=== PATIENT | male | born 1945 | race Caucasian/White ===

== ENCOUNTER 2018-01-11 15:54 | Inpatient (IN) | payer MEDICARE ==
[2018-01-11] MEDS ORDERED: ASPIRIN 81 MG PO STA (16:03)
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
[2018-01-11 16:19] LABS: Basophils % (A) 0 %; Eosinophils # (A) 0.1 k/uL (0-0.7); Eosinophils % (A) 1 %; HCT 33.7 % (39.0-53.0); HGB 11.3 gm/dL (13.0-17.5); Lymphocytes # (A) 1.1 k/uL (1.0-4.8); Lymphocytes % (A) 6 %; MCH 30.9 pg (25.0-35.0); MCHC 33.5 g/dL (31.0-37.0); MCV 92.1 fL (80.0-100.0); Mean Platelet Volume 8.1; Monocytes # (A) 0.8 k/uL (0-1.0); Monocytes % (A) 4 %; Neutrophils # (A) 16.2 k/uL (1.3-7.7); Neutrophils % (A) 88 %; Platelet Count 201 k/uL (150-450); RBC 3.65 m/uL (4.30-5.90); RDW 13.9 % (11.5-15.5); WBC 18.3 k/uL (3.8-10.6)
[2018-01-11 16:33] LABS: Albumin 4.2 g/dL (3.5-5.0); Calcium 9.6 mg/dL (8.4-10.2); Magnesium 1.8 mg/dL (1.6-2.3); Potassium 4.9 mmol/L (3.5-5.1); Total Bilirubin 0.9 mg/dL (0.2-1.3); Total Protein 6.9 g/dL (6.3-8.2)
[2018-01-11 16:34] LABS: Partial Thromboplastin Time 24.2 sec (22.0-30.0); Prothrombin Time 10.1 sec (9.0-12.0)
[2018-01-11 16:42] LABS: Creatine Kinase 77 U/L (55-170)
[2018-01-11 16:52] LABS: D-Dimer 1.94 mg/L FEU (<0.60)
--- NOTE | 2018-01-11 16:52 | XR ---
EXAMINATION TYPE: XR chest 2V DATE OF EXAM: 01/11/2018 COMPARISON: NONE HISTORY: Chest discomfort and pain. TECHNIQUE: Frontal and lateral views of the chest are obtained. FINDINGS: There is left basilar opacity silhouetting left heart border and hemidiaphragm. There is less prominent right basilar opacity silhouetting portion of right minor fissure. The cardiac silhoue tte size is felt enlarged. Old posterior left rib fractures are noted. IMPRESSION: Lingular and left lower lobe infiltrates and less prominent right middle lobe infiltrate .
[2018-01-11 16:54] LABS: Creatine Kinase MB 0.9 ng/mL (0.0-2.4); Troponin I <0.012 ng/mL (0.000-0.034)
[2018-01-11] MEDS ORDERED: cefTRIAXone IN SWFI 1,000 MG/10 ML SYRINGE IVP STA (17:49)
[2018-01-11] MEDS ORDERED: PNEUMONIA PROTOCOL UTILIZED 1 EACH MISC PO PRN (18:42)
[2018-01-11] MEDS ORDERED: AZITHROMYCIN 500 MG in SODIUM CHLORIDE 0.9% 250 ML IVPB STA (18:42)
[2018-01-11] MEDS ORDERED: ALPRAZolam 0.25 MG TAB PO PRN (18:44)
[2018-01-11] MEDS ORDERED: FUROSEMIDE 20 MG TAB PO PRN (18:44)
--- NOTE | 2018-01-11 19:42 | P.HPIM ---
History of Present Illness Patient is a very pleasant gentleman 72-year-old came in with complains of not feeling well has been going on since yesterday feels tired fatigued body aches along with shortness of breath denied any orthopnea PND denied any significant cough patient is found to have infiltrates significant on the left lower lung devi along with the mild infiltrate in the right lung devi patient has BNP of around thousand patient is being admitted for pneumonia patient has renal dysfunction unsure whether patient kidney function abnormality. Patient is on multiple antidepressant medications including minoxidil, clonidine, metoprolol, hydrochlorothiazide, losartan, amlodipine. Patient blood pressure is low here. Patient was started on IV fluids antibiotics Rocephin and azithromycin and is being admitted. Was complaining of subjective chills doesn't have any fever here, was comparing of questionable pleuritic pain Review of Systems REVIEW OF SYSTEMS: CONSTITUTIONAL: No fever, no malaise, no fatigue. HEENT: No recent visual problems or hearing problems. Denied any sore throat. CARDIOVASCULAR: No chest pain, orthopnea, PND, no palpitations, no syncope. PULMONARY: As mentioned in HPI GASTROINTESTINAL: No diarrhea, no nausea, no vomiting, no abdominal pain. Normoactive bowel sounds. NEUROLOGICAL: No headaches, no weakness, no numbness. HEMATOLOGICAL: Denies any bleeding or petechiae. GENITOURINARY: Denies any burning micturition, frequency, or urgency. MUSCULOSKELETAL/RHEUMATOLOGICAL: Denies any joint pain, swelling, or any muscle pain. ENDOCRINE: Denies any polyuria or polydipsia. The rest of the 14-point review of systems is negative. Past Medical History Past Medical History: Hypertension History of Any Multi-Drug Resistant Organisms: None Reported Past Surgical History: Appendectomy Past Psychological History: No Psychological Hx Reported Smoking Status: Never smoker Past Alcohol Use History: Occasional Past Drug Use History: None Reported Medications and Allergies Home Medications Medication Instructions Recorded Confirmed Type ALPRAZolam [Xanax] 0.25 mg PO DAILY PRN 01/11/18 01/11/18 History Allopurinol [Zyloprim] 300 mg PO DAILY 01/11/18 01/11/18 History Fluticasone Nasal [place] [Flonase 2 spr EA NOSTRIL DAILY PRN 01/11/18 01/11/18 History Nasal [place]] Furosemide [Lasix] 20 mg PO DAILY PRN 01/11/18 01/11/18 History Loratadine [Claritin] 10 mg PO DAILY 01/11/18 01/11/18 History Losartan/Hydrochlorothiazide 1 tab PO DAILY 01/11/18 01/11/18 History [Losartan-Hctz 100-25 mg Tab] Metoprolol Succinate (ER) [Toprol 100 mg PO DAILY 01/11/18 01/11/18 History Xl] Minoxidil 5 mg PO TID 01/11/18 01/11/18 History Potassium Chloride [Klor-Con 20] 20 meq PO DAILY 01/11/18 01/11/18 History Tamsulosin HCl [Flomax] 0.4 mg PO DAILY 01/11/18 01/11/18 History amLODIPine [Norvasc] 10 mg PO DAILY 01/11/18 01/11/18 History cloNIDine HCL 0.3 mg PO TID 01/11/18 01/11/18 History Allergies Allergy/AdvReac Type Severity Reaction Status Date / Time clams Allergy Unknown Verified 01/11/18 16:52 Physical Exam Vitals: Vital Signs Temp Pulse Resp BP Pulse Ox 01/11/18 18:49 78 18 103/58 95 01/11/18 17:48 76 18 100/59 95 01/11/18 15:58 98.5 F 86 18 123/66 96 Intake and Output 01/11/18 01/11/18 01/11/18 06:59 14:59 22:59 Other: Weight 99.79 kg PHYSICAL EXAMINATION: GENERAL: The patient is alert and oriented x3, not in any acute distress. Well developed, well nourished. HEENT: Pupils are round and equally reacting to light. EOMI. No scleral icterus. No conjunctival pallor. Normocephalic, atraumatic. No pharyngeal erythema. No thyromegaly. CARDIOVASCULAR: S1 and S2 present. No murmurs, rubs, or gallops. PULMONARY: She does have crackles in the left lower lung bases. ABDOMEN: Soft, nontender, nondistended, normoactive bowel sounds. No palpable organomegaly. MUSCULOSKELETAL: No joint swelling or deformity. EXTREMITIES: No cyanosis, clubbing, or pedal edema. NEUROLOGICAL: Gross neurological examination did not reveal any focal deficits. SKIN: No rashes. Results CBC & Chem 7: 01/11/18 16:03 01/11/18 16:03 Labs: Abnormal Lab Results - Last 24 Hours (Table) 01/11/18 01/11/18 01/11/18 Range/Units 16:03 16:03 16:03 WBC 18.3 H (3.8-10.6) k/uL RBC 3.65 L (4.30-5.90) m/uL Hgb 11.3 L (13.0-17.5) gm/dL Hct 33.7 L (39.0-53.0) % Neutrophils # 16.2 H (1.3-7.7) k/uL D-Dimer 1.94 H (<0.60) mg/L FEU Carbon Dioxide 21 L (22-30) mmol/L BUN 37 H (9-20) mg/dL Creatinine 2.80 H (0.66-1.25) mg/dL Glucose 107 H (74-99) mg/dL ALT 19 L (21-72) U/L Assessment and Plan Plan: -Left lower lobe pneumonia and sepsis secondary to left lower lobe pneumonia: Patient is on Rocephin and azithromycin and IV fluids which will be continued -Renal failure: Unsure whether patient has acute renal failure chronic renal failure will continue the IV fluids recheck kidney function tomorrow. Patient will need further workup with the UA urine random sodium urine random creatinine renal ultrasound. Can be related to hypotension from excessive antidepressant medications are sepsis. hypertension patient is on multiple antiplatelet medication because of hypotension and sepsis all that if his medications will be cut discontinued except for metoprolol to avoid any reflux tachycardia.
[2018-01-11] MEDS: SODIUM CHLORIDE 0.9% 1,000 ML IV SCH (20:05)
[2018-01-11] MEDS: IPRATROPIUM-ALBUTEROL 3 ML NEB INHALATION SCH (21:32)
[2018-01-11] MEDS ORDERED: MINOXIDIL 2.5 MG TAB PO SCH (22:00)
[2018-01-11] MEDS: cloNIDine HCL 0.1 MG TAB PO SCH (22:31)
[2018-01-12] MEDS: IPRATROPIUM-ALBUTEROL 3 ML NEB INHALATION SCH ×6 (00:56→20:56)
[2018-01-12 05:51] LABS: Appearance,Urine Cloudy (Clear); Bilirubin,Urine Negative (Negative); Blood,Urine Negative (Negative); Color,Urine Yellow; Glucose,Urine (UA) Negative (Negative); Hyaline Casts,Urine 453 /lpf (0-2); Ketones,Urine Negative (Negative); Leukocyte Esterase,Urine Negative (Negative); Nitrite,Urine Negative (Negative); Protein,Urine 1+ (Negative); RBC,Urine <1 /hpf (0-5); Specific Gravity,Urine 1.021 (1.001-1.035); Squamous Epithelial Cell,Urine <1 /hpf (0-4); WBC,Urine 2 /hpf (0-5)
[2018-01-12] MEDS: SODIUM CHLORIDE 0.9% 1,000 ML IV SCH ×3 (06:02→21:33)
[2018-01-12] MEDS: AZITHROMYCIN 500 MG TAB PO SCH (08:57)
[2018-01-12] MEDS: cloNIDine HCL 0.1 MG TAB PO SCH ×3 (08:58→21:22)
[2018-01-12] MEDS: METOPROLOL SUCCINATE (ER) 100 MG TAB.ER.24H PO SCH (08:58)
[2018-01-12] MEDS: LORATADINE 10 MG TAB PO SCH (08:58)
[2018-01-12] MEDS: cefTRIAXone IN SWFI 1,000 MG/10 ML SYRINGE IVP SCH (08:58)
[2018-01-12] MEDS: TAMSULOSIN 0.4 MG CAP.ER.24H PO SCH (08:59)
[2018-01-12] MEDS ORDERED: NON-FORMULARY DRUG (Losartan/Hydrochlorothiazide [Losartan-Hctz 100-25 Mg Tab] 1 TAB) PO SCH (09:00)
[2018-01-12] MEDS ORDERED: amLODIPine 10 MG TAB PO SCH (09:00)
[2018-01-12] MEDS ORDERED: POTASSIUM CHLORIDE ER 20 MEQ TAB.ER PO SCH (09:00)
[2018-01-12 09:15] LABS: HCT 33.7 % (39.0-53.0); HGB 11.1 gm/dL (13.0-17.5); MCH 30.7 pg (25.0-35.0); MCHC 33.1 g/dL (31.0-37.0); MCV 92.7 fL (80.0-100.0); Mean Platelet Volume 8.3; Platelet Count 198 k/uL (150-450); RBC 3.63 m/uL (4.30-5.90); WBC 15.9 k/uL (3.8-10.6)
[2018-01-12 09:32] LABS: Calcium 9.1 mg/dL (8.4-10.2); Potassium 4.9 mmol/L (3.5-5.1)
--- NOTE | 2018-01-12 10:06 | US ---
EXAMINATION TYPE: US kidneys/renal and bladder; renal stones per patient; pneumonia; HTN DATE OF EXAM: 01/12/2018 COMPARISON: NONE CLINICAL HISTORY: renal failure. EXAM MEASUREMENTS: Right Kidney: 12.5 x 6.0 x 6.6 cm Left Kidney: 11.4 x 6.2 x 7.0 cm Post Void Residual Volume: not assessed on inpatient Right Kidney: multiple cortical cysts with largest as simple cyst lateral inferiorly = 4.5 x 3.7 x 3. 9cm Left Kidney: multiple cortical cysts with largest seen inferiorly as simple cyst = 2.5 x 2.8 x 3.0cm . Bladder: wnl Bilateral Jets seen: only left ureteral jet was seen after 3 minute observation Incidental note: prominent and patent left iliac vein compared to right iliac vein at level of inferi or bladder. Cortical cysts show posterior enhancement, anechoic appearance, imperceptible wall compatible with si mple cysts. Cortical medullary differentiation is maintained within the kidneys, no evident hydroneph rosis or pathologic calcification. IMPRESSION: Simple cysts within the kidneys. Additional findings above.
--- NOTE | 2018-01-12 10:09 | XR ---
EXAMINATION TYPE: XR chest 2V DATE OF EXAM: 01/12/2018 COMPARISON: Prior chest x-ray 01/11/2018 HISTORY: Pneumonia TECHNIQUE: Frontal and lateral views of the chest are obtained. FINDINGS: Findings are similar to prior exam. Multiple old left-sided rib fractures are again noted, pleural parenchymal changes at the lung bases are stable. Heart remains enlarged. No evident pneumot horax. Arthropathy noted in the shoulders. IMPRESSION: Difficult to exclude basilar pneumonia, comparison with old chest x-rays may be of benef it to assess for stability or interval findings at the lung bases, pneumonia, pleural effusion not ex cluded.
--- NOTE | 2018-01-12 10:40 | P.PN ---
Subjective Patient was admitted for right lower lobe pneumonia patient is feeling better today ultrasound kidney showed some simple sepsis. Patient had chronic kidney disease. Patient does have acute renal failure as well which is prerenal azotemia urinary sodium is only 8 and continue with IV fluids today. His blood pressure is better now may require more antihypertensives during the course of hospitalization for now will only continue clonidine and metoprolol. Constitutional: Denied any fatigue denied any fever. Cardio vascular: denied any chest pain, palpitations Gastrointestinal denied any nausea vomiting Pulmonary: Shortness of breath improved Neurologic denied any new focal deficits Objective - Vital Signs Vital signs: Vital Signs Temp 98.2 F 01/12/18 07:05 Pulse 80 01/12/18 07:34 Resp 16 01/12/18 07:05 BP 140/75 01/12/18 07:05 Pulse Ox 98 01/12/18 07:05 Intake & Output 01/11/18 01/12/18 01/12/18 18:59 06:59 18:59 Output Total 400 Balance -400 Weight 99.79 kg 107.048 kg Output: Urine 400 - Exam PHYSICAL EXAMINATION: GENERAL: The patient is alert and oriented x3, not in any acute distress. Well developed, well nourished. HEENT: Pupils are round and equally reacting to light. EOMI. No scleral icterus. No conjunctival pallor. Normocephalic, atraumatic. No pharyngeal erythema. No thyromegaly. CARDIOVASCULAR: S1 and S2 present. No murmurs, rubs, or gallops. PULMONARY: Good air entry into bilateral lung devi no wheezing minimal crackles in the left lower lung bases ABDOMEN: Soft, nontender, nondistended, normoactive bowel sounds. No palpable organomegaly. MUSCULOSKELETAL: No joint swelling or deformity. EXTREMITIES: No cyanosis, clubbing, or pedal edema. NEUROLOGICAL: Gross neurological examination did not reveal any focal deficits. SKIN: No rashes. - Labs CBC & Chem 7: 01/12/18 08:57 01/12/18 08:57 Labs: Abnormal Lab Results - Last 24 Hours (Table) 01/11/18 01/11/18 01/11/18 Range/Units 16:03 16:03 16:03 WBC 18.3 H (3.8-10.6) k/uL RBC 3.65 L (4.30-5.90) m/uL Hgb 11.3 L (13.0-17.5) gm/dL Hct 33.7 L (39.0-53.0) % Neutrophils # 16.2 H (1.3-7.7) k/uL D-Dimer 1.94 H (<0.60) mg/L FEU Carbon Dioxide 21 L (22-30) mmol/L BUN 37 H (9-20) mg/dL Creatinine 2.80 H (0.66-1.25) mg/dL Glucose 107 H (74-99) mg/dL ALT 19 L (21-72) U/L Urine Protein (Negative) Hyaline Casts (0-2) /lpf Ur Random Sodium (30-90) mmol/L 01/12/18 01/12/18 01/12/18 Range/Units 00:00 00:00 08:57 WBC 15.9 H (3.8-10.6) k/uL RBC 3.63 L (4.30-5.90) m/uL Hgb 11.1 L (13.0-17.5) gm/dL Hct 33.7 L (39.0-53.0) % Neutrophils # (1.3-7.7) k/uL D-Dimer (<0.60) mg/L FEU Carbon Dioxide (22-30) mmol/L BUN (9-20) mg/dL Creatinine (0.66-1.25) mg/dL Glucose (74-99) mg/dL ALT (21-72) U/L Urine Protein 1+ H (Negative) Hyaline Casts 453 H (0-2) /lpf Ur Random Sodium 8 L (30-90) mmol/L 01/12/18 Range/Units 08:57 WBC (3.8-10.6) k/uL RBC (4.30-5.90) m/uL Hgb (13.0-17.5) gm/dL Hct (39.0-53.0) % Neutrophils # (1.3-7.7) k/uL D-Dimer (<0.60) mg/L FEU Carbon Dioxide 17 L (22-30) mmol/L BUN 40 H (9-20) mg/dL Creatinine 2.58 H (0.66-1.25) mg/dL Glucose 127 H (74-99) mg/dL ALT (21-72) U/L Urine Protein (Negative) Hyaline Casts (0-2) /lpf Ur Random Sodium (30-90) mmol/L Assessment and Plan Plan: -Left lower lobe pneumonia and sepsis secondary to left lower lobe pneumonia: Patient is on Rocephin and azithromycin and IV fluids which will be continued -Renal failure: Patient may have chronic kidney disease unable to stage at this time secondary to hypertensive nephrosclerosis and the patient appears to have some acute renal failure may be because of sepsis are intravascular depletion, continue with IV fluids hypertension patient is on multiple antiplatelet medication because of hypotension and sepsis all that if his medications will be cut discontinued except for metoprolol to avoid any reflux tachycardia.
[2018-01-12] MEDS: ALLOPURINOL 300 MG TAB PO SCH (11:25)
--- NOTE | 2018-01-12 20:18 | CONS ---
CONSULTATION REASON FOR CONSULT: Renal failure. HISTORY OF PRESENT ILLNESS: The patient is a 72-year-old male who was admitted to the hospital with complaints of increased fatigue, weakness, shortness of breath. The patient did have some cough. He states his blood pressure has not been well-controlled as outpatient. He is complaining of swelling in his lower extremities and he believes it is from Norvasc and he is maintained on diuretics as well. Currently patient is on Rocephin and azithromycin. He denies any previous history of kidney disease. Patient is maintained on angiotensin receptor blockers at home prior to admission. He denies use of nonsteroidal anti-inflammatory agents. Serum creatinine this admission was 2.8 initially, it is now down to 2.58. The patient is maintained on IV fluids. He has been voiding well and has had good urine output. Blood pressure was low on initial admission with systolic in the 92 range, which is currently improved. PAST MEDICAL HISTORY: Hypertension, hyperuricemia, BPH. ALLERGIES: None. SURGICAL HISTORY: Appendectomy. SOCIAL HISTORY: Negative for smoking, drug abuse or alcohol abuse. EXAMINATION: The patient is currently comfortable, awake. He is not in any acute distress. He is mildly short of breath. Blood pressure was 140/75, heart rate 88 per minute. Patient is afebrile. HEART: S1, S2. LUNGS: Bilateral breath sounds are heard. Abdomen is soft, obese, nontender. Lower extremities show edema 2+ bilaterally. E[employer]MENT [employer] is grossly intact. LABS: Show sodium 139, potassium 4.9, chloride 106, CO2 17, BUN 40, serum creatinine 2.58, hemoglobin 11.1 g/dL. Calcium 9.6. UA is quite benign with 1+ protein. Hyaline casts are noted even less than 0. Chest x-ray shows lingular and left lower lobe infiltrates, possible right middle lobe infiltrate as well. ASSESSMENT: 1. Acute kidney injury secondary to hypotension, hypoperfusion, currently nonoliguric. Continue off of angiotensin receptor blockers. I will decrease the IV fluids. There are no nephrotoxic agents on board currently. 2. Rule out chronic kidney disease. Previous labs are not available. 3. Left lung pneumonia maintained on Zithromax and Rocephin. 4. Hypertension with blood pressure initially low on admission, currently much better with systolic around 140s. Continue off of minoxidil. 5. Metabolic acidosis secondary to renal failure. Add sodium oral sodium bicarb if the CO2 remains low tomorrow. PLAN: Decrease IV fluids. Repeat labs in a.m. continue off of ALF inhibitor. Continue off of angiotensin receptor blockers. The patient will need adjustment of blood pressure medications post discharge. He is complaining of side effects from clonidine in terms of dry mouth. Hold off on diuretics as well for now. Thank you for this consultation. We will continue to follow the patient with you during hospitalization and assessment. [place] / DANIEL: [id number] /
[2018-01-13] MEDS: SODIUM CHLORIDE 0.9% 1,000 ML IV SCH (05:55)
[2018-01-13] MEDS: IPRATROPIUM-ALBUTEROL 3 ML NEB INHALATION SCH ×4 (08:14→20:03)
[2018-01-13 08:28] LABS: HCT 32.3 % (39.0-53.0); HGB 10.7 gm/dL (13.0-17.5); MCH 30.7 pg (25.0-35.0); MCHC 33.1 g/dL (31.0-37.0); MCV 92.7 fL (80.0-100.0); Mean Platelet Volume 8.3; Platelet Count 197 k/uL (150-450); RBC 3.48 m/uL (4.30-5.90); WBC 12.2 k/uL (3.8-10.6)
[2018-01-13] MEDS: ALLOPURINOL 300 MG TAB PO SCH (08:47)
[2018-01-13] MEDS: LORATADINE 10 MG TAB PO SCH (08:48)
[2018-01-13] MEDS: AZITHROMYCIN 500 MG TAB PO SCH (08:48)
[2018-01-13] MEDS: cefTRIAXone IN SWFI 1,000 MG/10 ML SYRINGE IVP SCH (08:48)
[2018-01-13] MEDS: cloNIDine HCL 0.1 MG TAB PO SCH ×3 (08:48→21:51)
[2018-01-13] MEDS: METOPROLOL SUCCINATE (ER) 100 MG TAB.ER.24H PO SCH (08:48)
[2018-01-13] MEDS: TAMSULOSIN 0.4 MG CAP.ER.24H PO SCH (08:49)
[2018-01-13 08:54] LABS: Calcium 9.4 mg/dL (8.4-10.2); Potassium 4.5 mmol/L (3.5-5.1)
--- NOTE | 2018-01-13 10:01 | P.PN ---
Subjective Patient was admitted for right lower lobe pneumonia patient is feeling better today ultrasound kidney showed some simple sepsis. Patient had chronic kidney disease. Patient does have acute renal failure as well which is prerenal azotemia urinary sodium is only 8 and continue with IV fluids today. His blood pressure is better now may require more antihypertensives during the course of hospitalization for now will only continue clonidine and metoprolol. 01/13/2018 Patient's oxygen requirements have gone up, patient's creatinine improved1. CAT scan because of non-improvement in his respiratory status but waiting for the kidney function to improve. If patient colitis condition worsens and if his kidney function improves will obtain a CAT scan tomorrow his kidney function improved to 1.75 creatinine blood pressure is stable not requiring all antidepressant medications Constitutional: Denied any fatigue denied any fever. Cardio vascular: denied any chest pain, palpitations Gastrointestinal denied any nausea vomiting Pulmonary: Shortness of breath improved Neurologic denied any new focal deficits Objective - Vital Signs Vital signs: Vital Signs Temp 98.4 F 01/13/18 07:25 Pulse 89 01/13/18 08:25 Resp 16 01/13/18 07:25 BP 139/75 01/13/18 07:25 Pulse Ox 97 01/13/18 08:14 Intake & Output 01/12/18 01/13/18 01/13/18 18:59 06:59 18:59 Intake Total 1450 Output Total 300 700 400 Balance -300 750 -400 Intake: Intake, IV Titration 800 Amount Sodium Chloride 0.9% 1, 800 000 ml @ 50 mls/hr IV . Q20H [facility] Rx#:[id number] Oral 650 Output: Urine 300 700 400 Other: # Voids 1 2 - Exam PHYSICAL EXAMINATION: GENERAL: The patient is alert and oriented x3, not in any acute distress. Well developed, well nourished. HEENT: Pupils are round and equally reacting to light. EOMI. No scleral icterus. No conjunctival pallor. Normocephalic, atraumatic. No pharyngeal erythema. No thyromegaly. CARDIOVASCULAR: S1 and S2 present. No murmurs, rubs, or gallops. PULMONARY: Good air entry into bilateral lung devi no wheezing minimal crackles in the left lower lung bases ABDOMEN: Soft, nontender, nondistended, normoactive bowel sounds. No palpable organomegaly. MUSCULOSKELETAL: No joint swelling or deformity. EXTREMITIES: No cyanosis, clubbing, or pedal edema. NEUROLOGICAL: Gross neurological examination did not reveal any focal deficits. SKIN: No rashes. - Labs CBC & Chem 7: 01/13/18 07:51 01/13/18 07:51 Labs: Abnormal Lab Results - Last 24 Hours (Table) 01/13/18 01/13/18 Range/Units 07:51 07:51 WBC 12.2 H (3.8-10.6) k/uL RBC 3.48 L (4.30-5.90) m/uL Hgb 10.7 L (13.0-17.5) gm/dL Hct 32.3 L (39.0-53.0) % Chloride 108 H (98-107) mmol/L Carbon Dioxide 20 L (22-30) mmol/L BUN 30 H (9-20) mg/dL Creatinine 1.75 H (0.66-1.25) mg/dL Glucose 124 H (74-99) mg/dL Microbiology - Last 24 Hours (Table) 01/11/18 19:25 Blood Culture - Preliminary Blood No Growth after 24 hours 01/12/18 01:07 Gram Stain - Preliminary Sputum Assessment and Plan Plan: -Left lower lobe pneumonia and sepsis secondary to left lower lobe pneumonia: Patient is on Rocephin and azithromycin and IV fluids which will be continued -Renal failure: Patient may have chronic kidney disease unable to stage at this time secondary to hypertensive nephrosclerosis and the patient appears to have some acute renal failure may be because of sepsis are intravascular depletion, continue with IV fluids hypertension patient is on multiple antiplatelet medication because of hypotension and sepsis all that if his medications will be cut discontinued except for metoprolol to avoid any reflux tachycardia.
[2018-01-13] MEDS: FLUTICASONE 50MCG/SPRAY NASAL 16GM EA NOSTRIL PRN (16:56)
--- NOTE | 2018-01-13 18:42 | PN ---
PROGRESS NOTE Patient is seen for followup for acute kidney injury. He was admitted to the hospital with pneumonia. Currently maintained on antibiotics, IV fluids were decreased to about 50 mL an hour. The patient states he is feeling better. PHYSICAL EXAMINATION: Blood pressure is currently 148/80, heart rate 84 per minute. He is afebrile. Examination of the heart S1, S2. Examination of the lungs bilateral breath sounds are heard. Abdomen is soft, nontender. Examination of lower extremities shows edema 1+ bilaterally. KITCHEN MANAGER exam is grossly intact. LABS: Sodium 142, potassium 4.5, chloride 108, BUN 30, serum creatinine 1.75, hemoglobin 10.7 g/dL. ASSESSMENT: 1. Acute kidney injury secondary to hypotension, hypoperfusion, nonoliguric currently improved. IV fluids were decreased. We can discontinue the IV fluids and patient is encouraged to increase oral intake. 2. Possible underlying chronic kidney disease. No previous labs available for comparison. 3. Left lung pneumonia maintained on Zithromax and Rocephin. 4. Hypertension. The patient will need adjustment of his antihypertensive medications since he is on clonidine and minoxidil. He does not want to take the calcium channel blockers anymore secondary to lower extremity edema. 5. Metabolic acidosis secondary to renal failure. CO2 is slightly improved today. We can hold off on sodium bicarb for now. PLAN: Encourage increased oral intake and repeat chest x-ray in a.m., possible discharge by tomorrow. Patient will need outpatient followup for acute kidney injury. MMODL / IJN: [id number] /
[2018-01-14 02:49] LABS: Iron Saturation 4.41 (15.00-50.00)
[2018-01-14] MEDS: SODIUM CHLORIDE 0.9% 1,000 ML IV SCH (05:41)
[2018-01-14] MEDS: IPRATROPIUM-ALBUTEROL 3 ML NEB INHALATION SCH ×4 (07:41→20:04)
[2018-01-14 08:35] LABS: HCT 30.3 % (39.0-53.0); HGB 10.4 gm/dL (13.0-17.5); MCH 31.5 pg (25.0-35.0); MCHC 34.4 g/dL (31.0-37.0); MCV 91.8 fL (80.0-100.0); Mean Platelet Volume 8.1; Platelet Count 198 k/uL (150-450); RBC 3.31 m/uL (4.30-5.90); RDW 13.6 % (11.5-15.5); WBC 9.6 k/uL (3.8-10.6)
[2018-01-14] MEDS: LORATADINE 10 MG TAB PO SCH (08:54)
[2018-01-14] MEDS: METOPROLOL SUCCINATE (ER) 100 MG TAB.ER.24H PO SCH (08:54)
[2018-01-14] MEDS: TAMSULOSIN 0.4 MG CAP.ER.24H PO SCH (08:54)
[2018-01-14] MEDS: ALLOPURINOL 300 MG TAB PO SCH (08:55)
[2018-01-14] MEDS: cloNIDine HCL 0.1 MG TAB PO SCH ×3 (08:55→21:40)
[2018-01-14] MEDS: cefTRIAXone IN SWFI 1,000 MG/10 ML SYRINGE IVP SCH (08:55)
[2018-01-14] MEDS: AZITHROMYCIN 500 MG TAB PO SCH (08:55)
[2018-01-14] MEDS: FLUTICASONE 50MCG/SPRAY NASAL 16GM EA NOSTRIL PRN (09:00)
[2018-01-14 09:48] LABS: Calcium 9.5 mg/dL (8.4-10.2); Potassium 3.9 mmol/L (3.5-5.1)
--- NOTE | 2018-01-14 10:06 | P.PN ---
Subjective Patient was admitted for right lower lobe pneumonia patient is feeling better today ultrasound kidney showed some simple sepsis. Patient had chronic kidney disease. Patient does have acute renal failure as well which is prerenal azotemia urinary sodium is only 8 and continue with IV fluids today. His blood pressure is better now may require more antihypertensives during the course of hospitalization for now will only continue clonidine and metoprolol. 01/13/2018 Patient's oxygen requirements have gone up, patient's creatinine improved1. CAT scan because of non-improvement in his respiratory status but waiting for the kidney function to improve. If patient colitis condition worsens and if his kidney function improves will obtain a CAT scan tomorrow his kidney function improved to 1.75 creatinine blood pressure is stable not requiring all antidepressant medications 01/14/2018 Patient is feeling much better today I do not have any basic metabolic profile available I'll order repeat chest x-ray patient probably can be discharged tomorrow Constitutional: Denied any fatigue denied any fever. Cardio vascular: denied any chest pain, palpitations Gastrointestinal denied any nausea vomiting Pulmonary: Shortness of breath improved Neurologic denied any new focal deficits Objective - Vital Signs Vital signs: Vital Signs Temp 99 F 01/14/18 08:02 Pulse 112 H 01/14/18 08:02 Resp 16 01/14/18 08:02 BP 154/97 01/14/18 08:02 Pulse Ox 95 01/14/18 08:02 Intake & Output 01/13/18 01/14/18 01/14/18 18:59 06:59 18:59 Output Total 1100 Balance -1100 Output: Urine 1100 Other: # Voids 2 1 - Exam PHYSICAL EXAMINATION: GENERAL: The patient is alert and oriented x3, not in any acute distress. Well developed, well nourished. HEENT: Pupils are round and equally reacting to light. EOMI. No scleral icterus. No conjunctival pallor. Normocephalic, atraumatic. No pharyngeal erythema. No thyromegaly. CARDIOVASCULAR: S1 and S2 present. No murmurs, rubs, or gallops. PULMONARY: Good air entry into bilateral lung devi no wheezing minimal crackles in the left lower lung bases ABDOMEN: Soft, nontender, nondistended, normoactive bowel sounds. No palpable organomegaly. MUSCULOSKELETAL: No joint swelling or deformity. EXTREMITIES: No cyanosis, clubbing, or pedal edema. NEUROLOGICAL: Gross neurological examination did not reveal any focal deficits. SKIN: No rashes. - Labs CBC & Chem 7: 01/14/18 08:12 01/14/18 08:12 Labs: Abnormal Lab Results - Last 24 Hours (Table) 01/13/18 01/14/18 01/14/18 Range/Units 07:51 08:12 08:12 RBC 3.31 L (4.30-5.90) m/uL Hgb 10.4 L (13.0-17.5) gm/dL Hct 30.3 L (39.0-53.0) % Chloride 108 H (98-107) mmol/L Carbon Dioxide 21 L (22-30) mmol/L Glucose 123 H (74-99) mg/dL Iron 12 L (65-175) ug/dL Iron Saturation 4.41 L (15.00-50.00) Microbiology - Last 24 Hours (Table) 01/12/18 01:07 Gram Stain - Final Sputum Sputum Culture - Final 01/11/18 19:25 Blood Culture - Preliminary Blood No Growth after 48 hours Assessment and Plan Plan: -Left lower lobe pneumonia and sepsis secondary to left lower lobe pneumonia: Patient is on Rocephin and azithromycin and IV fluids which will be continued -Renal failure: Patient may have chronic kidney disease unable to stage at this time secondary to hypertensive nephrosclerosis and the patient appears to have some acute renal failure may be because of sepsis are intravascular depletion, continue with IV fluids hypertension patient is on multiple antihyper-tensive medication because of hypotension and sepsis all that if his medications will be cut discontinued except for metoprolol to avoid any reflux tachycardia.
--- NOTE | 2018-01-14 10:27 | XR ---
EXAMINATION TYPE: XR chest 1V DATE OF EXAM: 01/14/2018 COMPARISON: Prior chest x-ray 01/12/2018 HISTORY: Congestive heart failure, renal failure, pneumonia TECHNIQUE: Single frontal view of the chest is obtained. FINDINGS: The heart remains enlarged. Bibasilar patchy increased density persists. No evident pneumo thorax. Aorta is dense. Pulmonary vascularity and golden are stable. IMPRESSION: Possible left lower lobe atelectasis versus pneumonia and associated effusion, there may be subsegmental atelectasis. Cardiomegaly. Follow-up recommended.
--- NOTE | 2018-01-14 12:18 | P.PN ---
Subjective patient is seen in follow-up for acute kidney injury. Renal function continues to improve with creatinine down to 1.23 today. He is currently maintained on normal saline at 50 mL an hour. Hemodynamically stable.oral intake is good. No vomiting or diarrhea. Good urine output. Vital signs are stable. General: The patient appeared well nourished and normally developed. HEENT: Head exam is unremarkable. Neck is without jugular venous distension. LUNGS: Lungs are clear to auscultation and percussion. Breath sounds decreased. HEART: Rate and Rhythm are regular. First and second heart sounds normal. No murmurs, rubs or gallops. ABDOMEN: Abdominal exam reveals normal bowel sounds. Non-tender and non- distended. No evidence of peritonitis. EXTREMITITES: No clubbing, cyanosis, or edema. Objective - Vital Signs Vital signs: Vital Signs Temp 99 F 01/14/18 08:02 Pulse 79 01/14/18 11:10 Resp 16 01/14/18 08:02 BP 154/97 01/14/18 08:02 Pulse Ox 95 01/14/18 08:02 Intake & Output 01/13/18 01/14/18 01/14/18 18:59 06:59 18:59 Output Total 1100 Balance -1100 Output: Urine 1100 Other: # Voids 2 1 - Labs CBC & Chem 7: 01/14/18 08:12 01/14/18 08:12 Labs: Abnormal Lab Results - Last 24 Hours (Table) 01/13/18 01/14/18 01/14/18 Range/Units 07:51 08:12 08:12 RBC 3.31 L (4.30-5.90) m/uL Hgb 10.4 L (13.0-17.5) gm/dL Hct 30.3 L (39.0-53.0) % Chloride 108 H (98-107) mmol/L Carbon Dioxide 21 L (22-30) mmol/L Glucose 123 H (74-99) mg/dL Iron 12 L (65-175) ug/dL Iron Saturation 4.41 L (15.00-50.00) Microbiology - Last 24 Hours (Table) 01/12/18 01:07 Gram Stain - Final Sputum Sputum Culture - Final 01/11/18 19:25 Blood Culture - Preliminary Blood No Growth after 48 hours Assessment and Plan Plan: Assessment: #1. Non-oliguric acute kidney mostly prerenal secondary to hypotension. Renal function improving with creatinine down to 1.23 today. #2. Left lung pneumonia maintained on antibiotics. #3. Benign hypertension. Controlled. #4. Metabolic acidosis secondary to acute kidney injury. Improved. Plan: Hep-Lock IV fluids. Encouraged oral intake. Avoid nephrotoxic agents and hypotensive episodes. Repeat electrolytes in the morning.
[2018-01-15] MEDS: IPRATROPIUM-ALBUTEROL 3 ML NEB INHALATION SCH (07:37)
[2018-01-15 08:03] LABS: Calcium 9.7 mg/dL (8.4-10.2); Potassium 4.2 mmol/L (3.5-5.1)
[2018-01-15] MEDS: FLUTICASONE 50MCG/SPRAY NASAL 16GM EA NOSTRIL PRN (08:07)
[2018-01-15] MEDS: ALLOPURINOL 300 MG TAB PO SCH (08:08)
[2018-01-15] MEDS: METOPROLOL SUCCINATE (ER) 100 MG TAB.ER.24H PO SCH (08:08)
[2018-01-15] MEDS: cloNIDine HCL 0.1 MG TAB PO SCH (08:08)
[2018-01-15] MEDS: AZITHROMYCIN 500 MG TAB PO SCH (08:08)
[2018-01-15] MEDS: LORATADINE 10 MG TAB PO SCH (08:08)
[2018-01-15] MEDS: TAMSULOSIN 0.4 MG CAP.ER.24H PO SCH (08:08)
[2018-01-15 08:30] VITALS: BP 163/95; PULSE 93; RESP 16; TEMP 98.2
[2018-01-15] MEDS: cefTRIAXone IN SWFI 1,000 MG/10 ML SYRINGE IVP SCH ×2 (09:00→10:59)
--- NOTE | 2018-01-15 11:11 | P.DS ---
Providers Date of admission: 01/11/18 18:42 Attending physician: Kymberly Hernandez Consults: 01/11/18 18:42 Consult Physician Routine Consulting Provider: Ila Barron Consult Reason/Comments: Acute renal failure Do you want consulting provider notified?: Yes Primary care physician: Physician Nonstaff Hospital Course: Patient was admitted for right lower lobe pneumonia patient is feeling better today ultrasound kidney showed some simple sepsis. Patient had chronic kidney disease. Patient does have acute renal failure as well which is prerenal azotemia urinary sodium is only 8 and continue with IV fluids today. His blood pressure is better now may require more antihypertensives during the course of hospitalization for now will only continue clonidine and metoprolol. 01/13/2018 Patient's oxygen requirements have gone up, patient's creatinine improved1. CAT scan because of non-improvement in his respiratory status but waiting for the kidney function to improve. If patient colitis condition worsens and if his kidney function improves will obtain a CAT scan tomorrow his kidney function improved to 1.75 creatinine blood pressure is stable not requiring all antidepressant medications 01/14/2018 Patient is feeling much better today I do not have any basic metabolic profile available I'll order repeat chest x-ray patient probably can be discharged tomorrow 01/15/2018 Patient's kidney function improved creatinine is around 1 now. His renal dysfunction is secondary to excessive antidepressant medications which were all discontinued patient will losartan will be added to his regimen along with clonidine and a beta karon. Expected to control his blood pressure. Patient was pretty status significantly improved not requiring oxygen doing well upon ablation patient will be discharged on 7 more days of Ceftin. PHYSICAL EXAMINATION: GENERAL: The patient is alert and oriented x3, not in any acute distress. Well developed, well nourished. HEENT: Pupils are round and equally reacting to light. EOMI. No scleral icterus. No conjunctival pallor. Normocephalic, atraumatic. No pharyngeal erythema. No thyromegaly. CARDIOVASCULAR: S1 and S2 present. No murmurs, rubs, or gallops. PULMONARY: Good air entry into bilateral lung devi no wheezing minimal crackles in the left lower lung bases ABDOMEN: Soft, nontender, nondistended, normoactive bowel sounds. No palpable organomegaly. MUSCULOSKELETAL: No joint swelling or deformity. EXTREMITIES: No cyanosis, clubbing, or pedal edema. NEUROLOGICAL: Gross neurological examination did not reveal any focal deficits. SKIN: No rashes. Assessment and Plan Plan: -Left lower lobe pneumonia and sepsis secondary to left lower lobe pneumonia: Patient is on Rocephin and azithromycin -Renal failure: Acute renal failure secondary to excessive antidepressant medications as mentioned above which improved now creatinine is 1.0 as opposed to 2.8 on admission hypertension Patient Condition at Discharge: Stable Plan - Discharge Summary Discharge Rx Participant: No New Discharge Prescriptions: New Losartan [Cozaar] 100 mg PO DAILY #30 tab Cefuroxime Axetil [Ceftin] 500 mg PO BID #14 tab Albuterol Inhaler [Ventolin Hfa Inhaler] 1 - 2 puff INHALATION Q6HR PRN #1 inhaler PRN Reason: Shortness Of Breath Or Wheezing Discontinued Minoxidil 5 mg PO TID Losartan/Hydrochlorothiazide [Losartan-Hctz 100-25 mg Tab] 1 tab PO DAILY amLODIPine [Norvasc] 10 mg PO DAILY No Action Tamsulosin HCl [Flomax] 0.4 mg PO DAILY Loratadine [Claritin] 10 mg PO DAILY Furosemide [Lasix] 20 mg PO DAILY PRN PRN Reason: SWELLING Metoprolol Succinate (ER) [Toprol Xl] 100 mg PO DAILY cloNIDine HCL 0.3 mg PO TID Potassium Chloride [Klor-Con 20] 20 meq PO DAILY Fluticasone Nasal [place] [Flonase Nasal [place]] 2 spr EA NOSTRIL DAILY PRN PRN Reason: Nasal Congestion ALPRAZolam [Xanax] 0.25 mg PO DAILY PRN PRN Reason: Anxiety Allopurinol [Zyloprim] 300 mg PO DAILY Discharge Medication List ALPRAZolam [Xanax] 0.25 mg PO DAILY PRN 01/11/18 [History] Allopurinol [Zyloprim] 300 mg PO DAILY 01/11/18 [History] Fluticasone Nasal [place] [Flonase Nasal [place]] 2 spr EA NOSTRIL DAILY PRN [History] Furosemide [Lasix] 20 mg PO DAILY PRN 01/11/18 [History] Loratadine [Claritin] 10 mg PO DAILY 01/11/18 [History] Metoprolol Succinate (ER) [Toprol Xl] 100 mg PO DAILY 01/11/18 [History] Potassium Chloride [Klor-Con 20] 20 meq PO DAILY 01/11/18 [History] Tamsulosin HCl [Flomax] 0.4 mg PO DAILY 01/11/18 [History] cloNIDine HCL 0.3 mg PO TID 01/11/18 [History] Albuterol Inhaler [Ventolin Hfa Inhaler] 1 - 2 puff INHALATION Q6HR PRN #1 inhaler 01/15/18 [Rx] Cefuroxime Axetil [Ceftin] 500 mg PO BID #14 tab 01/15/18 [Rx] Losartan [Cozaar] 100 mg PO DAILY #30 tab 01/15/18 [Rx] Follow up Appointment(s)/Referral(s): None,Stated [REFERRING] - 1-2 days Prakash Melissa DO [STAFF PHYSICIAN] - 1 Week (Dr. Melissa will call patient with an appointment date and time. ) Patient Instructions/Handouts: Cefuroxime (By mouth), Albuterol (By breathing) , Losartan (By mouth), Acute Kidney Injury (DC), Pneumonia (DC) Discharge Disposition: HOME SELF-CARE
== END 2018-01-15 11:20 | disposition home or self-care (01) | DRG 871 ==
LOC: EC 15:54 → 5MS5E 18:42
PROVIDERS: ADMIT Internal Medicine; ATTEND Internal Medicine
DX: A41.9 Sepsis, unspecified organism (principal); J18.9 Pneumonia, unspecified organism; N17.9 Acute kidney failure, unspecified; E87.2 Acidosis; I95.9 Hypotension, unspecified; I12.9 Hypertensive chronic kidney disease with stage 1 through stage 4 chronic kidney disease, or unspecified chronic kidney disease; N18.9 Chronic kidney disease, unspecified; N40.0 Benign prostatic hyperplasia without lower urinary tract symptoms; Z79.899 Other long term (current) drug therapy; Z91.013 Allergy to seafood
CPT/HCPCS: 36415; 71045; 71046; 76770; 80048; 80053; 81001; 82150; 82550; 82553; 82570; 83540; 83550; 83605; 83690; 83735; 83880; 84300; 84484; 85025; 85027; 85379; 85610; 85730; 87040; 87070; 87205; 93005; 94640; 94760; 96365; 96375; 99285

== ENCOUNTER 2018-06-19 13:00 | Inpatient (IN) | payer MEDICARE ==
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
[2018-06-19] MEDS ORDERED: ONDANSETRON 4 MG/2 ML VIAL IVP STA (13:24)
[2018-06-19 13:38] LABS: Anisocytosis Slight; Basophils % (A) 0 %; Eosinophils # (A) 0.1 k/uL (0-0.7); Eosinophils % (A) 0 %; HCT 51.8 % (39.0-53.0); HGB 17.5 gm/dL (13.0-17.5); Lymphocytes # (A) 1.1 k/uL (1.0-4.8); Lymphocytes % (A) 5 %; MCH 31.2 pg (25.0-35.0); MCHC 33.7 g/dL (31.0-37.0); MCV 92.5 fL (80.0-100.0); Mean Platelet Volume 6.9; Monocytes % (A) 5 %; Neutrophils % (A) 90 %; Platelet Count 144 k/uL (150-450); WBC 22.4 k/uL (3.8-10.6)
[2018-06-19 13:42] LABS: ALT 85 U/L (21-72); AST 497 U/L (17-59); Albumin 4.4 g/dL (3.5-5.0); Alcohol <10 mg/dL; Alkaline Phosphatase 59 U/L (38-126); Anion Gap 14 mmol/L; Blood Urea Nitrogen 26 mg/dL (9-20); Calcium 9.7 mg/dL (8.4-10.2); Carbon Dioxide 24 mmol/L (22-30); Chloride 102 mmol/L (98-107); Glucose 142 mg/dL (74-99); Sodium 140 mmol/L (137-145); Total Bilirubin 1.2 mg/dL (0.2-1.3); Total Protein 7.8 g/dL (6.3-8.2)
--- NOTE | 2018-06-19 13:50 | CT ---
EXAMINATION TYPE: CT brain wo con DATE OF EXAM: 06/19/2018 COMPARISON: NONE HISTORY: Mental status changes CT DLP: 1162.8 mGycm Automated exposure control for dose reduction was used. FINDINGS: There are generalized changes of sulcal prominence and ventriculomegaly, compatible with atrophic jordyn nge. There is diffuse periventricular white matter lucency compatible with chronic white matter ische clari change. There is no acute focal lesion, mass effect or midline shift identified. I do not see gadiel dence of intracranial blood. There is a 1 cm retention cyst or polyp arising from the medial wall of the left maxillary sinus. A s imilar finding is seen on the right. The remainder the paranasal sinuses and mastoids are clear. The bony calvarium is intact. IMPRESSION: 1. NO ACUTE INTRACRANIAL ABNORMALITY. 2. MILD DEGENERATIVE CHANGE. 3. BILATERAL MAXILLARY SINUS MUCOSAL DISEASE.
--- NOTE | 2018-06-19 14:00 | XR ---
EXAMINATION TYPE: XR chest 1V portable DATE OF EXAM: 06/19/2018 HISTORY: altered mental status. REFERENCE: Previous study dated 01/14/2018. FINDINGS: Heart size upper limits of normal. There is platelike atelectasis at the left lung base. Th e lungs are otherwise clear. Pleural spaces are clear. IMPRESSION: 1. BORDERLINE CARDIOMEGALY. 2. PLATELIKE ATELECTASIS, LEFT LUNG BASE.
[2018-06-19 14:04] LABS: Appearance,Urine Cloudy (Clear); Bilirubin,Urine Negative (Negative); Blood,Urine Large (Negative); Budding Yeast,Urine Few /hpf; Color,Urine Yellow; Glucose,Urine (UA) Negative (Negative); Ketones,Urine Negative (Negative); Leukocyte Esterase,Urine Negative (Negative); Mucus,Urine Rare /hpf; Nitrite,Urine Negative (Negative); Protein,Urine 1+ (Negative); Specific Gravity,Urine 1.007 (1.001-1.035); Urobilinogen,Urine <2.0 mg/dL (<2.0)
[2018-06-19 14:04] LABS: INR 1.1 (<1.2); Partial Thromboplastin Time 21.2 sec (22.0-30.0); Prothrombin Time 10.7 sec (9.0-12.0)
[2018-06-19 14:05] LABS: Amphetamine Screen,Urine Not Detected (NotDetected); Barbiturate Screen,Urine Not Detected (NotDetected); Benzodiazepines Screen,Urine Not Detected (NotDetected); Cocaine Screen,Urine Not Detected (NotDetected); Methadone Screen, Urine Not Detected (NotDetected); Opiate Screen,Urine Not Detected (NotDetected); Oxycodone Screen, Urine Not Detected (NotDetected); Phencyclidine Screen,Urine Not Detected (NotDetected); Tricyclic Antidepressant,Urine Not Detected (NotDetected); Urn Cannabinoid Scrn Not Detected (NotDetected)
[2018-06-19] MEDS ORDERED: SODIUM CHLORIDE 0.9% 1,000 ML IV SCH (14:15)
[2018-06-19 14:22] LABS: Creatine Kinase MB 83.6 ng/mL (0.0-2.4); Troponin I 0.054 ng/mL (0.000-0.034)
[2018-06-19] MEDS ORDERED: SUCCINYLCHOLINE CHLORIDE VIAL 200 MG/10 ML VIAL IV STA ×5 (14:33→14:41)
[2018-06-19] MEDS ORDERED: MIDAZOLAM 1 MG/ML 5 ML VIAL IV STA (14:33)
[2018-06-19] MEDS ORDERED: MIDAZOLAM 2 MG/2 ML VIAL IV ONE (14:40)
[2018-06-19] MEDS ORDERED: PROPOFOL 1,000 MG in EMPTY BAG 1 BAG IV SCH (14:45)
--- NOTE | 2018-06-19 14:57 | XR ---
EXAMINATION TYPE: XR chest 1V portable DATE OF EXAM: 06/19/2018 COMPARISON: 06/19/2018 HISTORY: Ventilatory dependent respiratory failure. Endotracheal tube placement. TECHNIQUE: Single frontal view of the chest is obtained. FINDINGS: Endotracheal tube is in place in the interim with the Sissel tip at the level of the aorti c arch, properly placed. There is background scattered linear subsegmental atelectasis and pulmonary hyperinflation with biapical lucencies suggestive of underlying COPD. Cardia mediastinal silhouette i s within normal limits. Multiple left old healed rib fractures are seen posteriorly. No sizable pleur al effusion or pneumothorax. IMPRESSION: New appropriately placed endotracheal tube and persistent scattered subsegmental atelect asis.
[2018-06-19] MEDS ORDERED: SODIUM CHLORIDE 0.9% 1,000 ML IV STA ×2 (15:10→15:23)
[2018-06-19] MEDS ORDERED: PIPERACILLIN-TAZOBACTAM 3.375 GM in DEXTROSE/WATER 1 50ML.BAG IVPB STA (15:12)
[2018-06-19] MEDS ORDERED: SODIUM CHLORIDE 0.9% 500 ML 600 ML IV STA (15:23)
[2018-06-19] MEDS ORDERED: SODIUM CHLORIDE 0.9% 500 ML 500 ML IV STA (15:24)
[2018-06-19] MEDS ORDERED: LORazepam 2 MG/ML INJ IV PRN ×3 (15:24)
[2018-06-19] MEDS ORDERED: THIAMINE 100 MG/ML 2 ML VIAL IM STA (15:24)
--- NOTE | 2018-06-19 16:01 | ED ---
Medical Decision Making - Lab Data Result diagrams: 06/19/18 13:23 06/19/18 13:23 Lab Results 06/19/18 06/19/18 06/19/18 Range/Units 13:23 13:23 13:23 WBC 22.4 H (3.8-10.6) k/uL RBC 5.60 (4.30-5.90) m/uL Hgb 17.5 (13.0-17.5) gm/dL Hct 51.8 (39.0-53.0) % MCV 92.5 (80.0-100.0) fL MCH 31.2 (25.0-35.0) pg MCHC 33.7 (31.0-37.0) g/dL RDW 17.0 H (11.5-15.5) % Plt Count 144 L (150-450) k/uL Neutrophils % 90 % Lymphocytes % 5 % Monocytes % 5 % Eosinophils % 0 % Basophils % 0 % Neutrophils # 20.0 H (1.3-7.7) k/uL Lymphocytes # 1.1 (1.0-4.8) k/uL Monocytes # 1.0 (0-1.0) k/uL Eosinophils # 0.1 (0-0.7) k/uL Basophils # 0.0 (0-0.2) k/uL Anisocytosis Slight PT (9.0-12.0) sec INR (<1.2) APTT (22.0-30.0) sec Sodium 140 (137-145) mmol/L Potassium 5.0 (3.5-5.1) mmol/L Chloride 102 (98-107) mmol/L Carbon Dioxide 24 (22-30) mmol/L Anion Gap 14 mmol/L BUN 26 H (9-20) mg/dL Creatinine 3.10 H (0.66-1.25) mg/dL Est GFR (CKD-EPI)AfAm 22 (>60 ml/min/1.73 sqM) Est GFR (CKD-EPI)NonAf 19 (>60 ml/min/1.73 sqM) Glucose 142 H (74-99) mg/dL Calcium 9.7 (8.4-10.2) mg/dL Total Bilirubin 1.2 (0.2-1.3) mg/dL AST 497 H (17-59) U/L ALT 85 H (21-72) U/L Alkaline Phosphatase 59 (38-126) U/L Total Creatine Kinase 56677 H* (55-170) U/L CK-MB (CK-2) 83.6 H (0.0-2.4) ng/mL CK-MB (CK-2) Rel Index Troponin I 0.054 H* (0.000-0.034) ng/mL Total Protein 7.8 (6.3-8.2) g/dL Albumin 4.4 (3.5-5.0) g/dL Urine Color Urine Appearance (Clear) Urine pH (5.0-8.0) Ur Specific [place] (1.001-1.035) Urine Protein (Negative) Urine Glucose (UA) (Negative) Urine Ketones (Negative) Urine Blood (Negative) Urine Nitrite (Negative) Urine Bilirubin (Negative) Urine Urobilinogen (<2.0) mg/dL Ur Leukocyte Esterase (Negative) Urine Mucus (None) /hpf Urine Yeast (Budding) (None) /hpf Urine Opiates Screen (NotDetected) Ur Oxycodone Screen (NotDetected) Urine Methadone Screen (NotDetected) Ur Propoxyphene Screen (NotDetected) Ur Barbiturates Screen (NotDetected) U Tricyclic Antidepress (NotDetected) Ur Phencyclidine Scrn (NotDetected) Ur Amphetamines Screen (NotDetected) U Methamphetamines Scrn (NotDetected) U Benzodiazepines Scrn (NotDetected) Urine Cocaine Screen (NotDetected) U Marijuana (THC) Screen (NotDetected) Serum Alcohol <10 mg/dL 06/19/18 06/19/18 Range/Units 13:23 13:47 WBC (3.8-10.6) k/uL RBC (4.30-5.90) m/uL Hgb (13.0-17.5) gm/dL Hct (39.0-53.0) % MCV (80.0-100.0) fL MCH (25.0-35.0) pg MCHC (31.0-37.0) g/dL RDW (11.5-15.5) % Plt Count (150-450) k/uL Neutrophils % % Lymphocytes % % Monocytes % % Eosinophils % % Basophils % % Neutrophils # (1.3-7.7) k/uL Lymphocytes # (1.0-4.8) k/uL Monocytes # (0-1.0) k/uL Eosinophils # (0-0.7) k/uL Basophils # (0-0.2) k/uL Anisocytosis PT 10.7 (9.0-12.0) sec INR 1.1 (<1.2) APTT 21.2 L (22.0-30.0) sec Sodium (137-145) mmol/L Potassium (3.5-5.1) mmol/L Chloride (98-107) mmol/L Carbon Dioxide (22-30) mmol/L Anion Gap mmol/L BUN (9-20) mg/dL Creatinine (0.66-1.25) mg/dL Est GFR (CKD-EPI)AfAm (>60 ml/min/1.73 sqM) Est GFR (CKD-EPI)NonAf (>60 ml/min/1.73 sqM) Glucose (74-99) mg/dL Calcium (8.4-10.2) mg/dL Total Bilirubin (0.2-1.3) mg/dL AST (17-59) U/L ALT (21-72) U/L Alkaline Phosphatase (38-126) U/L Total Creatine Kinase (55-170) U/L CK-MB (CK-2) (0.0-2.4) ng/mL CK-MB (CK-2) Rel Index Troponin I (0.000-0.034) ng/mL Total Protein (6.3-8.2) g/dL Albumin (3.5-5.0) g/dL Urine Color Yellow Urine Appearance Cloudy (Clear) Urine pH 5.0 (5.0-8.0) Ur Specific [place] 1.007 (1.001-1.035) Urine Protein 1+ H (Negative) Urine Glucose (UA) Negative (Negative) Urine Ketones Negative (Negative) Urine Blood Large H (Negative) Urine Nitrite Negative (Negative) Urine Bilirubin Negative (Negative) Urine Urobilinogen <2.0 (<2.0) mg/dL Ur Leukocyte Esterase Negative (Negative) Urine Mucus Rare H (None) /hpf Urine Yeast (Budding) Few H (None) /hpf Urine Opiates Screen Not Detected (NotDetected) Ur Oxycodone Screen Not Detected (NotDetected) Urine Methadone Screen Not Detected (NotDetected) Ur Propoxyphene Screen Not Detected (NotDetected) Ur Barbiturates Screen Not Detected (NotDetected) U Tricyclic Antidepress Not Detected (NotDetected) Ur Phencyclidine Scrn Not Detected (NotDetected) Ur Amphetamines Screen Not Detected (NotDetected) U Methamphetamines Scrn Not Detected (NotDetected) U Benzodiazepines Scrn Not Detected (NotDetected) Urine Cocaine Screen Not Detected (NotDetected) U Marijuana (THC) Screen Not Detected (NotDetected) Serum Alcohol mg/dL Disposition Clinical Impression: Altered mental status, Rhabdomyolysis Disposition: ADMITTED IP TO THIS HOSP Condition: Serious Procedures - Sepsis Sepsis Focused Exam #1 Time Sepsis Criteria Met: 15:25 Sepsis Focused Exam Date: 06/19/18 Sepsis Focused Exam Time: 16:01 Sepsis Focused Exam Complete: Yes Vital Signs & RN Notes Reviewed: Yes Capillary Refill: < 2 Seconds: Fingers, Toes Peripheral Pulses: Normal: Radial (R), Radial (L) Skin Color: Normal for Patient Respiratory Exam: rales (Improved significantly from previous) Cardiovascular Exam: regular rate, normal rhythm
[2018-06-19 16:05] LABS: Alcohol <10 mg/dL; Magnesium 1.6 mg/dL (1.6-2.3); Phosphorus 6.9 mg/dL (2.5-4.5)
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
[2018-06-19] MEDS: LORazepam 2 MG/ML INJ IV PRN ×2 (16:30→22:14)
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
[2018-06-19 17:27] LABS: ABG Base Excess -4.4 mmol/L; ABG HCO3 21 mmol/L (21-25); ABG PCO2 37 mmHg (35-45); ABG PH 7.37 (7.35-7.45); ABG PO2 397 mmHg (83-108); ABG TCO2 22 mmol/L (19-24)
[2018-06-19] MEDS ORDERED: NALOXONE 0.4 MG/ML 1 ML VIAL IV PRN (18:26)
[2018-06-19 18:56] LABS: Glucose,Whole Blood 128 mg/dL (75-99)
[2018-06-19] MEDS: ASPIRIN 300 MG SUPP RECTAL SCH (18:58)
[2018-06-19] MEDS: WATER FOR INJECTION, STERILE 1,000 ML with SODIUM ACETATE 150 MEQ IV SCH ×2 (19:01)
[2018-06-19] MEDS: PANTOPRAZOLE 40 MG/10 ML VIAL IVP SCH (19:02)
[2018-06-19] MEDS: PROPOFOL 1,000 MG in EMPTY BAG 1 BAG IV SCH (19:30)
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
[2018-06-19] MEDS ORDERED: SODIUM CHLORIDE 0.9% 1,000 ML IV ONE ×2 (20:56)
[2018-06-19] MEDS: CHLORHEXIDINE GLUCONATE 15 ML CUP MUCOUS MEM SCH (20:58)
[2018-06-20 00:25] LABS: Glucose,Whole Blood 114 mg/dL (75-99)
[2018-06-20] MEDS: PROPOFOL 1,000 MG in EMPTY BAG 1 BAG IV SCH ×5 (00:35→21:28)
[2018-06-20] MEDS: PIPERACILLIN-TAZOBACTAM 3.375 GM in DEXTROSE/WATER 1 50ML.BAG IVPB SCH ×3 (00:41→15:46)
[2018-06-20] MEDS: HEPARIN SODIUM,PORCINE 5,000 UNIT/ML 1 ML VIAL SQ SCH ×3 (00:41→15:46)
[2018-06-20] MEDS: WATER FOR INJECTION, STERILE 1,000 ML with SODIUM ACETATE 150 MEQ IV SCH ×4 (01:51→09:40)
[2018-06-20 04:58] LABS: ABG Base Excess 3.9 mmol/L; ABG HCO3 28 mmol/L (21-25); ABG Oxygen Saturation 98.3 % (94-97); ABG PCO2 38 mmHg (35-45); ABG PH 7.47 (7.35-7.45); ABG PO2 94 mmHg (83-108); ABG TCO2 29 mmol/L (19-24)
[2018-06-20 05:24] LABS: Calcium 7.3 mg/dL (8.4-10.2); Phosphorus 3.6 mg/dL (2.5-4.5)
[2018-06-20 06:10] LABS: Anisocytosis Slight; Basophils # (A) 0.1 k/uL (0-0.2); Basophils % (A) 0 %; Eosinophils # (A) 0.1 k/uL (0-0.7); Eosinophils % (A) 1 %; HCT 38.7 % (39.0-53.0); Lymphocytes # (A) 1.9 k/uL (1.0-4.8); Lymphocytes % (A) 10 %; MCH 31.3 pg (25.0-35.0); MCHC 34.1 g/dL (31.0-37.0); MCV 91.9 fL (80.0-100.0); Monocytes # (A) 0.8 k/uL (0-1.0); Monocytes % (A) 5 %; Neutrophils # (A) 15.6 k/uL (1.3-7.7); Neutrophils % (A) 84 %; Platelet Count 110 k/uL (150-450); RBC 4.21 m/uL (4.30-5.90); RDW 17.2 % (11.5-15.5); WBC 18.6 k/uL (3.8-10.6)
[2018-06-20 06:12] LABS: Troponin I 0.075 ng/mL (0.000-0.034)
[2018-06-20 06:21] LABS: HGB 13.2 gm/dL (13.0-17.5)
--- NOTE | 2018-06-20 06:21 | XR ---
EXAMINATION TYPE: XR chest 1V portable DATE OF EXAM: 06/20/2018 HISTORY: Tube placement. REFERENCE: Previous study dated 06/19/2018. FINDINGS: There has been interval placement of an NG tube. Its tip is in the stomach. The patient's e ndotracheal tube is unchanged in appearance. Heart size upper limits of normal. There is left basilar airspace disease and a smaller amount of rig ht basilar airspace disease. I suspect a small left effusion. IMPRESSION: 1. WORSENING BIBASILAR AIRSPACE DISEASE. 2. BORDERLINE CARDIOMEGALY. 3. I SUSPECT A SMALL LEFT EFFUSION.
[2018-06-20 06:57] LABS: Magnesium 1.4 mg/dL (1.6-2.3)
[2018-06-20] MEDS ORDERED: Magnesium Replacement Protocol 1 EACH MISC MISCELLANE PRN (07:13)
[2018-06-20] MEDS: LORazepam 2 MG/ML INJ IV PRN ×4 (07:16→20:16)
[2018-06-20] MEDS ORDERED: PANTOPRAZOLE 40 MG TABLET PO SCH (07:30)
[2018-06-20] MEDS: MAGNESIUM SULFATE-D5W PMX 1 GM in DEXTROSE/WATER 1 100ML.BAG IVPB SCH ×3 (07:30→10:02)
[2018-06-20 08:25] LABS: Albumin 2.4 g/dL (3.5-5.0); Total Bilirubin 0.9 mg/dL (0.2-1.3); Total Protein 4.8 g/dL (6.3-8.2)
--- NOTE | 2018-06-20 08:49 | PCN ---
PROCEDURE NOTE TRIPLE LUMEN CATHETER PLACEMENT: PREOP DIAGNOSIS: Acute respiratory failure. POSTOP DIAGNOSIS: Acute respiratory failure. Indication Hemodynamic monitoring/Intravenous access. A time-out was completed verifying correct patient, procedure, site, positioning, and implant(s) or special equipment if applicable. The patient was placed in a dependent position appropriate for triple lumen catheter placement based on the vein to be cannulated. The patient's right groin was prepped and draped in sterile fashion. 1% Lidocaine was used to anesthetize the surrounding skin area. A triple lumen 9F Cordis catheter was introduced into the common femoral vein using Seldinger technique. The catheter was threaded smoothly over the guide wire and appropriate blood return was obtained. Each lumen of the catheter was evacuated of air and flushed with sterile saline. The catheter was then sutured in place to the skin and a sterile dressing applied. Perfusion to the extremity distal to the point of catheter insertion was checked and found to be adequate. No bedside complications or bleeding. MMODL / IJN: [id number] /
[2018-06-20 09:00] LABS: Creatine Kinase MB 19.3 ng/mL (0.0-2.4)
[2018-06-20] MEDS: PANTOPRAZOLE 40 MG/10 ML VIAL IVP SCH (09:00)
[2018-06-20] MEDS: THIAMINE 100 MG/ML 2 ML VIAL IVP SCH (09:00)
[2018-06-20] MEDS: CHLORHEXIDINE GLUCONATE 15 ML CUP MUCOUS MEM SCH ×2 (10:07→21:28)
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
--- NOTE | 2018-06-20 11:55 | CT ---
EXAMINATION TYPE: CT brain wo con DATE OF EXAM: 06/20/2018 COMPARISON: Previous study dated 06/19/2018. HISTORY: Follow up scan CT DLP: 1120.2 mGycm Automated exposure control for dose reduction was used. FINDINGS: There are generalized changes of sulcal prominence and ventriculomegaly, compatible with atrophic jordyn nge. There is diffuse periventricular white matter lucency, compatible small vessel ischemic change. There is no acute focal lesion, mass effect or midline shift identified. I do not see evidence of int racranial blood. There is a 1 cm retention cyst or polyp involving the left maxillary sinus. There is some chronic eth moidal sinus mucosal disease. The mastoids are clear. The bony calvarium is intact. IMPRESSION: 1. NO ACUTE INTRACRANIAL ABNORMALITY. 2. DEGENERATIVE CHANGE. 3. MAXILLARY SINUS MUCOSAL DISEASE.
--- NOTE | 2018-06-20 12:27 | US ---
EXAMINATION TYPE: US carotid duplex BILAT DATE OF EXAM: 06/20/2018 COMPARISON: NONE CLINICAL HISTORY: Stenosis. Stenosis, altered mental status, exam done portable in ICU, patient on a vent. EXAM MEASUREMENTS: RIGHT: Peak Systolic Velocity (PSV) cm/sec ----- Right CCA: 94.1 ----- Right ICA: 72.8 ----- Right ECA: 65.7 ICA/CCA ratio: 0.8 RIGHT: End Diastole cm/sec ----- Right CCA: 23.7 ----- Right ICA: 22.9 ----- Right ECA: 13.9 LEFT: Peak Systolic Velocity (PSV) cm/sec ----- Left CCA: 79.4 ----- Left ICA: 64.4 ----- Left ECA: 78.1 ICA/CCA ratio: 0.8 LEFT: End Diastole cm/sec ----- Left CCA: 19.5 ----- Left ICA: 15.7 ----- Left ECA: 15.7 VERTEBRALS (direction of flow): Right Vertebral: Antegrade Left Vertebral: Antegrade Rhythm: Normal Bilateral intimal thickening, plaque bilateral bulb, no elevated velocities, no significant stenosis. IMPRESSION: I DO NOT SEE EVIDENCE OF A HEMODYNAMICALLY SIGNIFICANT STENOSIS IN EITHER CAROTID SYSTEM. Criteria for Assigning % of Stenosis / Diameter reduction (Estimation based on the indirect measurements of the internal carotid artery velocities (ICA PSV). 1. Normal (no stenosis)=ICA PSV < 125 cm/s: ratio < 2.0: ICA EDV<40 cm/s. 2. Less than 50% stenosis=ICA PSV < 125 cm/s: ratio < 2.0: ICA EDV<40 cm/s. 3. 50 to 69% stenosis=ICA PSV of 125 to 230 cm/s: ration 2.0 ? 4.0: ICA EDV 40-100 cm/s. 4. Greater than 70% stenosis to near occlusion= ICA PSV > 230 cm/s: ratio > 4.0: ICA EDV > 100 cm/s. 5. Near occlusion= ICA PSV velocities may be low or undetectable: variable ratio and ICA EDV. 6. Total occlusion=unable to detect flow.
[2018-06-20 12:29] LABS: Glucose,Whole Blood 99 mg/dL (75-99)
--- NOTE | 2018-06-20 12:29 | US ---
EXAMINATION TYPE: US kidneys/renal and bladder DATE OF EXAM: 06/20/2018 COMPARISON: Previous study dated 01/12/2018 CLINICAL HISTORY: Acute renal failure. Acute renal failure, history of renal cysts, exam done portabl e in ICU, patient on a vent. EXAM MEASUREMENTS: Right Kidney: 11.6 x 6.1 x 6.5 cm Left Kidney: 11.3 x 6.4 x 5.3 cm Right Kidney: multiple cysts with largest measuring 4.6 x 3.6 x 4.6cm medial mid pole Left Kidney: multiple cysts with largest measuring 3.4 x 3.1 x 3.1cm medial inferior pole Bladder: wnl, faust catheter Bilateral Jets seen: yes IMPRESSION: MULTIPLE, SIMPLE APPEARING RENAL CYSTS IN BOTH KIDNEYS.
[2018-06-20] MEDS: ASPIRIN 300 MG SUPP RECTAL SCH (12:44)
--- NOTE | 2018-06-20 12:52 | P.PN ---
Subjective Progress Note Date: 06/20/18 Patient is a 73-year-old male with a PMH of hypertension and alcohol abuse who was brought into the ED via EMS after being found unresponsive at his apartment with shortness of breath. He was accompanied by his friends who noted that he was last seen the night prior at 7 PM. Upon arrival at the scene, the EMS found the patient hypoxic with saturation in the 70s with an empty bottle of vodka at his side. The patient was immediately brought to [facility] ED where he was found to be in respiratory distress and minimally responsive and was subsequently intubated. CT head was negative for acute intracranial abnormalities. He was found to have a WBC count of 22 and in conjunction with altered mental status there was high suspicion of aspiration and was started on IV Zosyn. His CK was elevated at 20,000 with acute renal failure compatible with acute rhabdomyolysis. Patient was transferred to the medical ICU for further management. Neurology was consulted and recommended that patient could be having myoclonic-like movements due to hypoxic encephalopathy and recommended an EEG with a repeat CT head. Patient was seen and examined at the bedside. He was sedated and endotracheal intubated. Objective - Vital Signs Vital signs: Vital Signs Temp 98.4 F 06/20/18 04:00 Pulse 76 06/20/18 07:00 Resp 18 06/20/18 07:00 BP 156/85 06/20/18 07:00 Pulse Ox 99 06/20/18 06:30 Intake & Output 06/19/18 06/20/18 06/20/18 18:59 06:59 18:59 Intake Total 12.013 4046.837 207.016 Output Total 150 490 240 Balance -800.094 5090.837 -32.984 Weight 90 kg 94.5 kg Intake: IV 3850.0 150 Piperacillin-Tazobactam 3 50.0 .375 gm In Dextrose/Water 1 50ml.bag @ 12.5 mls/hr IVPB ONCE STA Rx#: [id number] Sodium Chloride 0.9% 1, 2000 000 ml @ 999 mls/hr IV . Q1H1M [facility] Rx#:[id number] Water For Injection, 1800 150 Sterile 1,000 ml @ 150 mls/hr IV .Q7H10M [facility] with Sodium Acetate 150 meq Rx#:[id number] Intake, IV Titration 12.013 196.837 57.016 Amount Propofol 1,000 mg In 12.013 Empty Bag 1 bag @ Titrate IV .Q0M [facility] Rx#: [id number] Propofol 1,000 mg In 196.837 57.016 Empty Bag 1 bag @ Titrate IV .Q0M [facility] Rx#: [id number] Output: Gastric Drainage 200 Urine 150 490 40 Uretheral (Hopper) 150 Other: Voiding Method Indwelling Catheter - Exam General: Sedated male, orotracheal and orogastric tubes in place HEENT: NC/AT, anicteric sclerae, moist conjunctiva, no lid-lag, miotic pupils 2 mms dana Cardiovascular: S1/S2 wnl, no murmurs, rubs, or gallops Lungs: Bilateral rales with equal air entry Abdominal: Soft,non-distended, no guarding, rebound, or rigidity, normoactive bowel sounds Skin: Warm, dry Extremities: No edema or contractures, dorsalis pedal pulses palpable dana Neuro: Responsive to noxious stimuli, no myoclonic jerks noted - Labs CBC & Chem 7: 06/20/18 04:30 06/20/18 04:30 Labs: Abnormal Lab Results - Last 24 Hours (Table) 06/19/18 06/19/18 06/19/18 Range/Units 13:23 13:23 13:23 WBC 22.4 H (3.8-10.6) k/uL RBC (4.30-5.90) m/uL Hct (39.0-53.0) % RDW 17.0 H (11.5-15.5) % Plt Count 144 L (150-450) k/uL Neutrophils # 20.0 H (1.3-7.7) k/uL APTT (22.0-30.0) sec D-Dimer (<0.60) mg/L FEU ABG pH (7.35-7.45) ABG pO2 (83-108) mmHg ABG HCO3 (21-25) mmol/L ABG Total CO2 (19-24) mmol/L ABG O2 Saturation (94-97) % BUN 26 H (9-20) mg/dL Creatinine 3.10 H (0.66-1.25) mg/dL Glucose 142 H (74-99) mg/dL POC Glucose (mg/dL) (75-99) mg/dL Plasma Lactic Acid Roberth (0.7-2.0) mmol/L Calcium (8.4-10.2) mg/dL Phosphorus (2.5-4.5) mg/dL Magnesium (1.6-2.3) mg/dL AST 497 H (17-59) U/L ALT 85 H (21-72) U/L Alkaline Phosphatase (38-126) U/L Creatine Kinase (55-170) U/L Total Creatine Kinase 30186 H* (55-170) U/L CK-MB (CK-2) 83.6 H (0.0-2.4) ng/mL Troponin I 0.054 H* (0.000-0.034) ng/mL Total Protein (6.3-8.2) g/dL Albumin (3.5-5.0) g/dL Urine Protein (Negative) Urine Blood (Negative) Urine Mucus (None) /hpf Urine Yeast (Budding) (None) /hpf 06/19/18 06/19/18 06/19/18 Range/Units 13:23 13:47 15:00 WBC (3.8-10.6) k/uL RBC (4.30-5.90) m/uL Hct (39.0-53.0) % RDW (11.5-15.5) % Plt Count (150-450) k/uL Neutrophils # (1.3-7.7) k/uL APTT 21.2 L (22.0-30.0) sec D-Dimer (<0.60) mg/L FEU ABG pH (7.35-7.45) ABG pO2 (83-108) mmHg ABG HCO3 (21-25) mmol/L ABG Total CO2 (19-24) mmol/L ABG O2 Saturation (94-97) % BUN (9-20) mg/dL Creatinine (0.66-1.25) mg/dL Glucose (74-99) mg/dL POC Glucose (mg/dL) (75-99) mg/dL Plasma Lactic Acid Roberth (0.7-2.0) mmol/L Calcium (8.4-10.2) mg/dL Phosphorus 6.9 H (2.5-4.5) mg/dL Magnesium (1.6-2.3) mg/dL AST (17-59) U/L ALT (21-72) U/L Alkaline Phosphatase (38-126) U/L Creatine Kinase (55-170) U/L Total Creatine Kinase (55-170) U/L CK-MB (CK-2) (0.0-2.4) ng/mL Troponin I (0.000-0.034) ng/mL Total Protein (6.3-8.2) g/dL Albumin (3.5-5.0) g/dL Urine Protein 1+ H (Negative) Urine Blood Large H (Negative) Urine Mucus Rare H (None) /hpf Urine Yeast (Budding) Few H (None) /hpf 06/19/18 06/19/18 06/19/18 Range/Units 15:50 17:20 18:47 WBC (3.8-10.6) k/uL RBC (4.30-5.90) m/uL Hct (39.0-53.0) % RDW (11.5-15.5) % Plt Count (150-450) k/uL Neutrophils # (1.3-7.7) k/uL APTT (22.0-30.0) sec D-Dimer (<0.60) mg/L FEU ABG pH (7.35-7.45) ABG pO2 397 H (83-108) mmHg ABG HCO3 (21-25) mmol/L ABG Total CO2 (19-24) mmol/L ABG O2 Saturation 100.0 H (94-97) % BUN (9-20) mg/dL Creatinine (0.66-1.25) mg/dL Glucose (74-99) mg/dL POC Glucose (mg/dL) 128 H (75-99) mg/dL Plasma Lactic Acid Roberth 3.0 H* (0.7-2.0) mmol/L Calcium (8.4-10.2) mg/dL Phosphorus (2.5-4.5) mg/dL Magnesium (1.6-2.3) mg/dL AST (17-59) U/L ALT (21-72) U/L Alkaline Phosphatase (38-126) U/L Creatine Kinase (55-170) U/L Total Creatine Kinase (55-170) U/L CK-MB (CK-2) (0.0-2.4) ng/mL Troponin I (0.000-0.034) ng/mL Total Protein (6.3-8.2) g/dL Albumin (3.5-5.0) g/dL Urine Protein (Negative) Urine Blood (Negative) Urine Mucus (None) /hpf Urine Yeast (Budding) (None) /hpf 06/19/18 06/19/18 06/19/18 Range/Units 19:30 19:41 20:40 WBC (3.8-10.6) k/uL RBC (4.30-5.90) m/uL Hct (39.0-53.0) % RDW (11.5-15.5) % Plt Count (150-450) k/uL Neutrophils # (1.3-7.7) k/uL APTT (22.0-30.0) sec D-Dimer 23.94 H (<0.60) mg/L FEU ABG pH (7.35-7.45) ABG pO2 (83-108) mmHg ABG HCO3 (21-25) mmol/L ABG Total CO2 (19-24) mmol/L ABG O2 Saturation (94-97) % BUN (9-20) mg/dL Creatinine (0.66-1.25) mg/dL Glucose (74-99) mg/dL POC Glucose (mg/dL) (75-99) mg/dL Plasma Lactic Acid Roberth 2.1 H* (0.7-2.0) mmol/L Calcium (8.4-10.2) mg/dL Phosphorus (2.5-4.5) mg/dL Magnesium (1.6-2.3) mg/dL AST (17-59) U/L ALT (21-72) U/L Alkaline Phosphatase (38-126) U/L Creatine Kinase (55-170) U/L Total Creatine Kinase (55-170) U/L CK-MB (CK-2) (0.0-2.4) ng/mL Troponin I 0.091 H* (0.000-0.034) ng/mL Total Protein (6.3-8.2) g/dL Albumin (3.5-5.0) g/dL Urine Protein (Negative) Urine Blood (Negative) Urine Mucus (None) /hpf Urine Yeast (Budding) (None) /hpf 06/20/18 06/20/18 06/20/18 Range/Units 00:23 04:30 04:30 WBC 18.6 H (3.8-10.6) k/uL RBC 4.21 L (4.30-5.90) m/uL Hct 38.7 L (39.0-53.0) % RDW 17.2 H (11.5-15.5) % Plt Count 110 L (150-450) k/uL Neutrophils # 15.6 H (1.3-7.7) k/uL APTT (22.0-30.0) sec D-Dimer (<0.60) mg/L FEU ABG pH (7.35-7.45) ABG pO2 (83-108) mmHg ABG HCO3 (21-25) mmol/L ABG Total CO2 (19-24) mmol/L ABG O2 Saturation (94-97) % BUN 34 H (9-20) mg/dL Creatinine 2.42 H (0.66-1.25) mg/dL Glucose 108 H (74-99) mg/dL POC Glucose (mg/dL) 114 H (75-99) mg/dL Plasma Lactic Acid Roberth (0.7-2.0) mmol/L Calcium 7.3 L (8.4-10.2) mg/dL Phosphorus (2.5-4.5) mg/dL Magnesium 1.4 L (1.6-2.3) mg/dL AST 254 H (17-59) U/L ALT (21-72) U/L Alkaline Phosphatase 34 L (38-126) U/L Creatine Kinase (55-170) U/L Total Creatine Kinase (55-170) U/L CK-MB (CK-2) (0.0-2.4) ng/mL Troponin I (0.000-0.034) ng/mL Total Protein 4.8 L (6.3-8.2) g/dL Albumin 2.4 L (3.5-5.0) g/dL Urine Protein (Negative) Urine Blood (Negative) Urine Mucus (None) /hpf Urine Yeast (Budding) (None) /hpf 06/20/18 06/20/18 06/20/18 Range/Units 04:30 04:30 04:57 WBC (3.8-10.6) k/uL RBC (4.30-5.90) m/uL Hct (39.0-53.0) % RDW (11.5-15.5) % Plt Count (150-450) k/uL Neutrophils # (1.3-7.7) k/uL APTT (22.0-30.0) sec D-Dimer (<0.60) mg/L FEU ABG pH 7.47 H (7.35-7.45) ABG pO2 (83-108) mmHg ABG HCO3 28 H (21-25) mmol/L ABG Total CO2 29 H (19-24) mmol/L ABG O2 Saturation 98.3 H (94-97) % BUN (9-20) mg/dL Creatinine (0.66-1.25) mg/dL Glucose (74-99) mg/dL POC Glucose (mg/dL) (75-99) mg/dL Plasma Lactic Acid Roberth (0.7-2.0) mmol/L Calcium (8.4-10.2) mg/dL Phosphorus (2.5-4.5) mg/dL Magnesium (1.6-2.3) mg/dL AST (17-59) U/L ALT (21-72) U/L Alkaline Phosphatase (38-126) U/L Creatine Kinase 7690 H* (55-170) U/L Total Creatine Kinase (55-170) U/L CK-MB (CK-2) 19.3 H (0.0-2.4) ng/mL Troponin I 0.075 H* (0.000-0.034) ng/mL Total Protein (6.3-8.2) g/dL Albumin (3.5-5.0) g/dL Urine Protein (Negative) Urine Blood (Negative) Urine Mucus (None) /hpf Urine Yeast (Budding) (None) /hpf Microbiology - Last 24 Hours (Table) 06/19/18 16:00 Gram Stain - Preliminary Sputum Sputum Culture - Preliminary Assessment and Plan Plan: Acute metabolic encephalopathy likely secondary to delirium tremens vs seizure w / post-ictal confusion, vs hypoxic encephalopathy. Patient could've had alcohol intoxication with subsequent aspiration and hypoxia versus withdrawal seizures. CVA not ruled out at this time. -Neurology recommendations appreciated -Repeat CT head reviewed. We'll follow up EKG -Continue with mechanical ventilation -CIWA protocol with Ativan prn w/ Propofol for sedation -C/w Thiamine -IVFs 150 cc/hr -Making adequate urine output 50 mL an hour at this time Sepsis secondary to aspiration -IVFs -C/w Zosyn -Currently intubated Thrombocytopenia -Likely secondary to alcohol abuse -Will monitor for now Rhabdomyolysis -Likely secondary to dehydration vs seizure -C/w IVFs 150 cc/hr -CK significantly improved from 20,000 to 7,000 ANTONIO on CKD -IVFs 150 cc/hr -Significantly improved from admission Elevated Troponin -Down trended, likely due to hypoxic insult Transaminitis - Likely acute alcohol induced. Improved. DVT//GI proph. - Heparin subq - Protonix
[2018-06-20] MEDS: SODIUM CHLORIDE 0.9% 1,000 ML IV SCH (13:00)
--- NOTE | 2018-06-20 17:06 | EEG ---
ELECTROENCEPHALOGRAM REPORT DATE OF EE06/20/2018. REFERRING PHYSICIAN: Dr. Michaels. CONSULTING/INTERPRETING PHYSICIAN: Dr. Tu HAUSER. ELECTROENCEPHALOGRAPHIC EXAMINATION REPORT: INDICATION FOR EXAMINATION: This patient is a 73-year-old male being evaluated for episode of unresponsiveness and myoclonic like seizure activity once intubated. AGE: [age]. EEG FINDINGS: A routine 21 channel awake digital EEG recording was accomplished utilizing the 10-20 international system with bipolar and referential montages. The background activity in the most alert resting state consists of a low to medium amplitude, poorly developed and poorly sustained 5-6 Hz activity over the posterior head regions. This posterior rhythm attenuates minimally to eye opening. There is a small amount of low amplitude 18-20 Hz beta activity seen maximally over the anterior head regions. Muscle and movement artifact was observed on several occasions during the tracing. Hyperventilation was not performed. Photic stimulation at flash frequencies of 2-30 Hz produced a minimal occipital driving response. No epileptiform discharges were seen. IMPRESSION: This EEG gives evidence of a severe widespread diffuse disturbance in cerebral function. The EEG failed to reveal any focal, lateralized, or epileptiform abnormalities. If clinically indicated, a followup EEG is recommended. Clinical correlation is recommended. MMODL / IJN: [id number] /
[2018-06-20 17:52] LABS: Glucose,Whole Blood 111 mg/dL (75-99)
[2018-06-21 00:26] LABS: Glucose,Whole Blood 102 mg/dL (75-99)
[2018-06-21] MEDS: HEPARIN SODIUM,PORCINE 5,000 UNIT/ML 1 ML VIAL SQ SCH ×3 (01:10→18:47)
[2018-06-21] MEDS: LORazepam 2 MG/ML INJ IV PRN ×7 (01:10→22:45)
[2018-06-21] MEDS: PROPOFOL 1,000 MG in EMPTY BAG 1 BAG IV SCH ×3 (01:10→09:34)
[2018-06-21] MEDS: SODIUM CHLORIDE 0.9% 1,000 ML IV SCH ×3 (02:09→19:12)
[2018-06-21] MEDS: PIPERACILLIN-TAZOBACTAM 3.375 GM in DEXTROSE/WATER 1 50ML.BAG IVPB SCH ×3 (02:09→18:47)
[2018-06-21 05:17] LABS: Anisocytosis Slight; Basophils % (A) 0 %; Eosinophils # (A) 0.6 k/uL (0-0.7); Eosinophils % (A) 4 %; HCT 37.7 % (39.0-53.0); HGB 12.4 gm/dL (13.0-17.5); Lymphocytes # (A) 1.9 k/uL (1.0-4.8); Lymphocytes % (A) 15 %; MCH 31.2 pg (25.0-35.0); MCHC 32.9 g/dL (31.0-37.0); Mean Platelet Volume 8.6; Monocytes # (A) 0.5 k/uL (0-1.0); Monocytes % (A) 4 %; Neutrophils # (A) 9.7 k/uL (1.3-7.7); Neutrophils % (A) 76 %; Platelet Count 100 k/uL (150-450); RBC 3.97 m/uL (4.30-5.90); WBC 12.9 k/uL (3.8-10.6)
[2018-06-21 05:30] LABS: Calcium 7.8 mg/dL (8.4-10.2); Magnesium 2.4 mg/dL (1.6-2.3); Phosphorus 2.7 mg/dL (2.5-4.5); Potassium 3.7 mmol/L (3.5-5.1)
[2018-06-21] MEDS ORDERED: Potassium Replacement Protocol 1 EACH MISC MISCELLANE PRN (05:54)
[2018-06-21 05:59] LABS: ABG Base Excess 5.7 mmol/L; ABG HCO3 30 mmol/L (21-25); ABG Oxygen Saturation 98.6 % (94-97); ABG PCO2 42 mmHg (35-45); ABG PH 7.46 (7.35-7.45); ABG PO2 103 mmHg (83-108); ABG TCO2 31 mmol/L (19-24)
[2018-06-21] MEDS ORDERED: POTASSIUM BICARBONATE/CIT AC 20 MEQ TABLET.EFF NG-TUBE SCH (06:00)
[2018-06-21 06:16] LABS: Glucose,Whole Blood 95 mg/dL (75-99)
--- NOTE | 2018-06-21 07:54 | XR ---
EXAMINATION TYPE: XR chest 1V portable DATE OF EXAM: 06/21/2018 COMPARISON: Prior chest x-ray 06/20/2018 HISTORY: Intubated TECHNIQUE: Single frontal view of the chest is obtained. FINDINGS: Endotracheal tube and NG tube are overlying appropriate positions. There is no evident pne umothorax or sizable effusion. Patchy bibasilar density is noted. Heart size is stable. There are ove rlying cardiac leads and the patient is rotated. There is an additional tubing overlying the thoracic inlet to the right of midline. IMPRESSION: Probable basilar atelectasis versus pneumonia, difficult to exclude small effusion. Medardo tional tubing overlying the patient is suspected, correlate.
--- NOTE | 2018-06-21 09:22 | P.PN ---
Subjective Progress Note Date: 06/21/18 Patient is a 73-year-old male with a PMH of hypertension and alcohol abuse who was brought into the ED via EMS after being found unresponsive at his apartment with shortness of breath. He was accompanied by his friends who noted that he was last seen the night prior at 7 PM. Upon arrival at the scene, the EMS found the patient hypoxic with saturation in the 70s with an empty bottle of vodka at his side. The patient was immediately brought to [facility] ED where he was found to be in respiratory distress and minimally responsive and was subsequently intubated. CT head was negative for acute intracranial abnormalities. He was found to have a WBC count of 22 and in conjunction with altered mental status there was high suspicion of aspiration and was started on IV Zosyn. His CK was elevated at 20,000 with acute renal failure compatible with acute rhabdomyolysis. Patient was transferred to the medical ICU for further management. Neurology was consulted and recommended that patient could be having myoclonic-like movements due to hypoxic encephalopathy and recommended an EEG with a repeat CT head. EEG showed severe widespread diffuse disturbance in cerebral function, and failed to reveal any epileptiform abnormalities. The repeat CT head also showed no acute intracranial abnormalities. Patient was seen and examined at the bedside. He was sedated and had orotracheal intubation, on the ventilator. Objective - Vital Signs Vital signs: Vital Signs Temp 98.2 F 06/21/18 04:00 Pulse 80 06/21/18 04:00 Resp 19 06/21/18 04:00 BP 102/62 06/21/18 04:00 Pulse Ox 98 06/21/18 04:00 Intake & Output 06/20/18 06/21/18 06/21/18 18:59 06:59 18:59 Intake Total 2069.292 1854.611 Output Total 1145 753 Balance 098.796 3097.611 Weight 98.5 kg Intake: IV 987.5 1275.0 Piperacillin-Tazobactam 3 87.5 75.0 .375 gm In Dextrose/Water 1 50ml.bag @ 12.5 mls/hr IVPB ONCE STA Rx#: [id number] Sodium Chloride 0.9% 1, 1200 000 ml @ 100 mls/hr IV . Q10H [facility] Rx#:[id number] Water For Injection, 900 Sterile 1,000 ml @ 150 mls/hr IV .Q7H10M [facility] with Sodium Acetate 150 meq Rx#:[id number] Intake, IV Titration 1011.792 339.611 Amount Magnesium Sulfate-D5w Pmx 200 1 gm In Dextrose/Water 1 100ml.bag @ 100 mls/hr IVPB Q1H [facility] Rx#: [id number] Propofol 1,000 mg In 211.792 239.611 Empty Bag 1 bag @ Titrate IV .Q0M [facility] Rx#: [id number] Sodium Chloride 0.9% 1, 600 100 000 ml @ 100 mls/hr IV . Q10H [facility] Rx#:[id number] Tube Feeding 40 150 Other 30 90 Output: Gastric Drainage 200 Urine 945 753 Other: Voiding Method Indwelling Catheter Indwelling Catheter - Exam General: Sedated male, orotracheal and orogastric tubes in place HEENT: NC/AT, anicteric sclerae, moist conjunctiva, no lid-lag, miotic pupils 2 mm dana Cardiovascular: S1/S2 wnl, no murmurs, rubs, or gallops Lungs: Bilateral ronchi with equal air entry Abdominal: Soft,non-distended, no guarding, rebound, or rigidity, normoactive bowel sounds Skin: Warm, dry Extremities: No edema or contractures, dorsalis pedis pulses palpable dana Neuro: Responsive to noxious stimuli, no myoclonic jerks noted - Labs CBC & Chem 7: 06/21/18 04:30 06/21/18 04:30 Labs: Abnormal Lab Results - Last 24 Hours (Table) 06/20/18 06/20/18 06/21/18 Range/Units 04:30 17:51 00:24 WBC (3.8-10.6) k/uL RBC (4.30-5.90) m/uL Hgb (13.0-17.5) gm/dL Hct (39.0-53.0) % RDW (11.5-15.5) % Plt Count (150-450) k/uL Neutrophils # (1.3-7.7) k/uL ABG pH (7.35-7.45) ABG HCO3 (21-25) mmol/L ABG Total CO2 (19-24) mmol/L ABG O2 Saturation (94-97) % BUN (9-20) mg/dL Creatinine (0.66-1.25) mg/dL Glucose (74-99) mg/dL POC Glucose (mg/dL) 111 H 102 H (75-99) mg/dL Calcium (8.4-10.2) mg/dL Magnesium (1.6-2.3) mg/dL Creatine Kinase 7690 H* (55-170) U/L 06/21/18 06/21/18 06/21/18 Range/Units 04:30 04:30 05:57 WBC 12.9 H (3.8-10.6) k/uL RBC 3.97 L (4.30-5.90) m/uL Hgb 12.4 L (13.0-17.5) gm/dL Hct 37.7 L (39.0-53.0) % RDW 17.0 H (11.5-15.5) % Plt Count 100 L (150-450) k/uL Neutrophils # 9.7 H (1.3-7.7) k/uL ABG pH 7.46 H (7.35-7.45) ABG HCO3 30 H (21-25) mmol/L ABG Total CO2 31 H (19-24) mmol/L ABG O2 Saturation 98.6 H (94-97) % BUN 26 H (9-20) mg/dL Creatinine 1.51 H (0.66-1.25) mg/dL Glucose 111 H (74-99) mg/dL POC Glucose (mg/dL) (75-99) mg/dL Calcium 7.8 L (8.4-10.2) mg/dL Magnesium 2.4 H (1.6-2.3) mg/dL Creatine Kinase 4928 H* (55-170) U/L Microbiology - Last 24 Hours (Table) 06/19/18 13:23 Blood Culture - Preliminary Blood No Growth after 24 hours Assessment and Plan Plan: Acute metabolic encephalopathy likely secondary to delirium tremens vs seizure w / post-ictal confusion, vs hypoxic encephalopathy -Neurology recommendations appreciated -Repeat CT head unremarkable. EEG reviewed. Diffuse dysfunction noted -- possibly secondary to hypoxic encephalopathy -Continue with mechanical ventilation -CIWA protocol with Ativan prn w/ Propofol for sedation -C/w Thiamine -IVFs 150 cc/hr -Making adequate urine output 50 mL an hour at this time Sepsis secondary to aspiration -IVFs -C/w Zosyn -Currently intubated Thrombocytopenia -Likely secondary to alcohol abuse -Will monitor for now Rhabdomyolysis -Likely secondary to dehydration vs seizure -C/w IVFs 150 cc/hr -CK significantly improved from admission ANTONIO on CKD -IVFs 150 cc/hr -Significantly improved from admission Elevated Troponin -Down trended, likely due to hypoxic insult Transaminitis - Likely acute alcohol induced. Improved. DVT//GI proph. - Heparin subq - Protonix
[2018-06-21] MEDS: ASPIRIN 300 MG SUPP RECTAL SCH (09:34)
[2018-06-21] MEDS: CHLORHEXIDINE GLUCONATE 15 ML CUP MUCOUS MEM SCH ×2 (09:34→20:29)
[2018-06-21] MEDS: PANTOPRAZOLE 40 MG/10 ML VIAL IVP SCH (09:35)
[2018-06-21] MEDS: THIAMINE 100 MG/ML 2 ML VIAL IVP SCH (09:35)
[2018-06-21 10:36] LABS: Hemoglobin A1C 5.2 % (4.0-6.0)
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
[2018-06-21 11:53] LABS: Glucose,Whole Blood 89 mg/dL (75-99)
--- NOTE | 2018-06-21 12:11 | ECHOF ---
Referral Reason:Thrombus MEASUREMENTS -------- HEIGHT: 175.3 cm WEIGHT: 98.4 kg BP: 102/62 RVIDd: 3.3 cm (< 3.3) IVSd: 1.2 cm (0.6 - 1.1) LVIDd: 3.9 cm (3.9 - 5.3) LVPWd: 1.0 cm (0.6 - 1.1) IVSs: 1.7 cm LVIDs: 2.7 cm LVPWs: 1.7 cm LA Diam: 3.3 cm (2.7 - 3.8) LAESV Index (A-L): 19.07 ml/m Ao Diam: 3.3 cm (2.0 - 3.7) AV Cusp: 2.4 cm (1.5 - 2.6) MV EXCURSION: 16.399 mm (> 18.000) MV EF SLOPE: 36 mm/s (70 - 150) EPSS: 0.5 cm MV E Fernando: 0.69 m/s MV DecT: 275 ms MV A Fernando: 1.03 m/s MV E/A Ratio: 0.67 FINDINGS -------- Sinus rhythm. This was a technically adequate study. The left ventricular size is normal. There is borderline concentric left ventricular hypertrophy. Overall left ventricular systolic function is normal with, an EF between 55 - 60 %. The right ventricle is mildly enlarged. Normal LA size by volume 22+/-6 ml/m2. The right atrium is normal in size. There is mild aortic valve sclerosis. The mitral valve is normal. The tricuspid valve appears structurally normal. There is no pulmonic regurgitation present. The aortic root size is normal. Normal inferior vena cava with normal inspiratory collapse consistent with estimated right atrial pre ssure of 5 mmHg. CONCLUSIONS -------- 1. Sinus rhythm. 2. This was a technically adequate study. 3. The left ventricular size is normal. 4. There is borderline concentric left ventricular hypertrophy. 5. Overall left ventricular systolic function is normal with, an EF between 55 - 60 %. 6. The right ventricle is mildly enlarged. 7. Normal LA size by volume 22+/-6 ml/m2. 8. The right atrium is normal in size. 9. There is mild aortic valve sclerosis. 10. The mitral valve is normal. 11. The tricuspid valve appears structurally normal. 12. There is no pulmonic regurgitation present. 13. The aortic root size is normal. 14. Normal inferior vena cava with normal inspiratory collapse consistent with estimated right atrial pressure of 5 mmHg. DOOR TRIMMER: Alcira Wyatt RDCS
[2018-06-21 18:12] LABS: Glucose,Whole Blood 97 mg/dL (75-99)
[2018-06-21 23:40] LABS: Glucose,Whole Blood 100 mg/dL (75-99)
[2018-06-22] MEDS: PIPERACILLIN-TAZOBACTAM 3.375 GM in DEXTROSE/WATER 1 50ML.BAG IVPB SCH ×3 (00:01→18:21)
[2018-06-22] MEDS: HEPARIN SODIUM,PORCINE 5,000 UNIT/ML 1 ML VIAL SQ SCH ×3 (00:01→17:39)
[2018-06-22] MEDS: PROPOFOL 1,000 MG in EMPTY BAG 1 BAG IV SCH ×7 (00:13→23:25)
[2018-06-22 05:30] LABS: Calcium 8.1 mg/dL (8.4-10.2); Magnesium 2.1 mg/dL (1.6-2.3); Phosphorus 2.8 mg/dL (2.5-4.5); Potassium 3.6 mmol/L (3.5-5.1)
[2018-06-22 05:44] LABS: Anisocytosis Slight; Basophils % (A) 0 %; Eosinophils # (A) 0.7 k/uL (0-0.7); Eosinophils % (A) 8 %; HCT 33.4 % (39.0-53.0); Lymphocytes # (A) 1.3 k/uL (1.0-4.8); Lymphocytes % (A) 15 %; MCH 30.8 pg (25.0-35.0); MCHC 32.9 g/dL (31.0-37.0); MCV 93.7 fL (80.0-100.0); Mean Platelet Volume 8.6; Monocytes # (A) 0.4 k/uL (0-1.0); Monocytes % (A) 4 %; Neutrophils % (A) 71 %; Platelet Count 102 k/uL (150-450); RBC 3.57 m/uL (4.30-5.90); WBC 8.5 k/uL (3.8-10.6)
[2018-06-22 05:55] LABS: Glucose,Whole Blood 100 mg/dL (75-99)
[2018-06-22] MEDS ORDERED: POTASSIUM BICARBONATE/CIT AC 20 MEQ TABLET.EFF NG-TUBE SCH (07:00)
[2018-06-22 07:21] LABS: ABG Base Excess 5.9 mmol/L; ABG HCO3 30 mmol/L (21-25); ABG Oxygen Saturation 97.4 % (94-97); ABG PCO2 41 mmHg (35-45); ABG PH 7.47 (7.35-7.45); ABG PO2 86 mmHg (83-108); ABG TCO2 31 mmol/L (19-24)
[2018-06-22] MEDS: SODIUM CHLORIDE 0.9% 1,000 ML IV SCH ×2 (07:27→17:39)
--- NOTE | 2018-06-22 08:13 | XR ---
EXAMINATION TYPE: XR chest 1V portable DATE OF EXAM: 06/22/2018 COMPARISON: Prior chest x-ray 06/21/2018 HISTORY: Intubated TECHNIQUE: Single frontal view of the chest is obtained. FINDINGS: Endotracheal and NG tube are overlying appropriate positions. There are overlying cardiac leads. No evident pneumothorax or pleural effusion. Patient is rotated, patchy bibasilar density pers ists. Lung volumes are low. Heart size is stable accounting for differences in technique. IMPRESSION: Probable basilar atelectasis, correlate to exclude pneumonia. Follow-up PA and lateral c hest x-ray recommended when patient is stable. Expiratory rotated exam.
[2018-06-22] MEDS: LORazepam 2 MG/ML INJ IV PRN ×2 (09:01→17:48)
[2018-06-22] MEDS: CHLORHEXIDINE GLUCONATE 15 ML CUP MUCOUS MEM SCH ×2 (09:04→21:12)
[2018-06-22] MEDS: PANTOPRAZOLE 40 MG/10 ML VIAL IVP SCH (09:04)
[2018-06-22] MEDS: THIAMINE 100 MG/ML 2 ML VIAL IVP SCH (09:06)
[2018-06-22 11:56] LABS: Glucose,Whole Blood 100 mg/dL (75-99)
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
[2018-06-22] MEDS: IPRATROPIUM-ALBUTEROL 3 ML NEB INHALATION SCH ×3 (15:27→23:31)
--- NOTE | 2018-06-22 15:37 | P.PN ---
Subjective Progress Note Date: 06/22/18 Principal diagnosis: Acute respiratory failure, metabolic encephalopathy. Patient was seen and examined no acute events overnight. Patient is intubated and ventilated. He is not responsive. Ventilator settings PEEP of 5, FiO2 of 40 , tidal volume of 500. He is saturating 100%. His blood pressure is 171/80 with a pulse of 78. Objective - Vital Signs Vital signs: Vital Signs Temp 98.1 F 06/22/18 04:00 Pulse 74 06/22/18 07:00 Resp 16 06/22/18 07:00 BP 152/87 06/22/18 07:00 Pulse Ox 100 06/22/18 07:00 Intake & Output 06/21/18 06/22/18 06/22/18 18:59 06:59 18:59 Intake Total 9572.683 0705.5 234.000 Output Total 995 740 70 Balance 936.328 3377.5 164.000 Weight 98.5 kg 99 kg Intake: IV 1100 1250.0 100 Piperacillin-Tazobactam 3 50.0 .375 gm In Dextrose/Water 1 50ml.bag @ 12.5 mls/hr IVPB ONCE [facility] Rx#: [id number] Sodium Chloride 0.9% 1, 1100 1200 100 000 ml @ 100 mls/hr IV . Q10H [facility] Rx#:[id number] Intake, IV Titration 262.500 112.5 94.000 Amount Piperacillin-Tazobactam 3 62.5 12.5 .375 gm In Dextrose/Water 1 50ml.bag @ 12.5 mls/hr IVPB Q8HR [facility] Rx#: [id number] Propofol 1,000 mg In 200.000 100 94.000 Empty Bag 1 bag @ Titrate IV .Q0M [facility] Rx#: [id number] Tube Feeding 180 500 40 Other 90 90 Output: Urine 995 740 70 Other: Voiding Method Indwelling Catheter Indwelling Catheter Indwelling Catheter - Exam General: [Unresponsive, intubated with NG tube] [appears at stated age] Derm: [warm], [dry] Head: [atraumatic], [normocephalic], [symmetric] Eyes: [EOMI], [no lid lag], [anicteric sclera] Mouth: [no lip lesion], [mucus membranes moist] Cardiovascular: [S1S2 reg], [no murmur], [positive DP pulse bilateral] Lungs: [Coarse breath sounds bilateral], [no rhonchi, no rales] , [no accessory muscle use] Abdominal: [soft], [ nontender to palpation], [no guarding], [no appreciable organomegaly] Ext: [no gross muscle atrophy], [no edema], [no contractures] - Labs CBC & Chem 7: 06/22/18 04:30 06/22/18 04:30 Labs: Abnormal Lab Results - Last 24 Hours (Table) 06/21/18 06/22/18 06/22/18 Range/Units 23:39 04:30 04:30 RBC 3.57 L (4.30-5.90) m/uL Hgb 11.0 L (13.0-17.5) gm/dL Hct 33.4 L (39.0-53.0) % RDW 17.0 H (11.5-15.5) % Plt Count 102 L (150-450) k/uL ABG pH (7.35-7.45) ABG HCO3 (21-25) mmol/L ABG Total CO2 (19-24) mmol/L ABG O2 Saturation (94-97) % Chloride 108 H (98-107) mmol/L Glucose 110 H (74-99) mg/dL POC Glucose (mg/dL) 100 H (75-99) mg/dL Calcium 8.1 L (8.4-10.2) mg/dL Creatine Kinase 2335 H* (55-170) U/L 06/22/18 06/22/18 06/22/18 Range/Units 05:53 07:19 11:54 RBC (4.30-5.90) m/uL Hgb (13.0-17.5) gm/dL Hct (39.0-53.0) % RDW (11.5-15.5) % Plt Count (150-450) k/uL ABG pH 7.47 H (7.35-7.45) ABG HCO3 30 H (21-25) mmol/L ABG Total CO2 31 H (19-24) mmol/L ABG O2 Saturation 97.4 H (94-97) % Chloride (98-107) mmol/L Glucose (74-99) mg/dL POC Glucose (mg/dL) 100 H 100 H (75-99) mg/dL Calcium (8.4-10.2) mg/dL Creatine Kinase (55-170) U/L Microbiology - Last 24 Hours (Table) 06/21/18 12:09 Gram Stain - Preliminary Sputum Sputum Culture - Preliminary 06/19/18 13:23 Blood Culture - Preliminary Blood No Growth after 48 hours 06/19/18 16:00 Gram Stain - Final Sputum Sputum Culture - Final Assessment and Plan Assessment: Assessment and Plan 1. Acute respiratory failure: Thought to be secondary to Aspiration PNA. CXR shows basilar atelectasis. Lactic acid 2.1 on admission, 1.3 on 06/20. ABG shows pH 7.47, pCO 31 and HCO3 30 (primary respiratory alkalosis with compensated metabolic acidosis). Elevate HOB. Aspiration precautions. NPO pending swallow eval when able. Full ventilator support, wean as tolerated. Continue DuoNeb Q4H. Continue Zosyn 3.376g IV TID. FU BCx, Sputum Cx 2. Acute metabolic encephalopathy - Likely secondary to delirium tremens vs. hypoxic encephalopathy (from aspiration PNA) - UDS negative, EtOH level < 10 (but with heavy h/o EtOH abuse) - Neurology consulted - r/o CVA - CT brain: No acute intracranial abnormality (06/19) - CT brain: No acute intracranial abnormality (06/20) - CUS: No carotid stenosis - Echo: EF 55-60% with mild LVH - r/o seizure - EEG shows severe widespread diffuse disturbance in cerebral function without epileptiform abnormalities. - Prolactin 9.6 within normal limits - Neurochecks. Seizure precautions. NPO pending swallow eval when able. CIWA protocol and Ativan 2 mg IV Q1H PRN for agitation. FU Neurology, B12 and RPR 3. Rhabdomyolysis: Secondary to dehydration vs seizure. Initially 00980 on admission, trending down to 2335 this AM. Continue NS at 100 cc/h. Monitor renal function. Daily CPK. 4. ANTONIO: BUN 26 Cr 3.10 on admission, likely secondary to rhabdomyolysis. Normalized this morning with a Cr of 1.08. Continue NS at 100 cc/h. Avoid nephrotoxins. Daily BMP. 5. EtOH abuse: CIWA protocol. Ativan IV PRN for withdrawal. Thiamine 100 mg IV QD. 6. Troponemia: Likely due to hypoxic insult. Trop 0.054, 0.091, 0.075 with EKG showing NSR (ACS ruled out). Continue ASA 325 mg PO QD. Telemetry monitoring. 7. Anemia: Hg 11 Hct 33.4 MCV 93.7. Normal Hg on admission, likely dilutional. Daily CBC. 8. Thrombocytopenia: Plt 102. Monitor as patient is on Heparin and Protonix. Likely related to EtOH abuse. FU acute Hep panel, daily CBC. 9. Transaminitis: AST 497 ALT 85 downtrending to AST 254 and ALT 67. Due to EtOH abuse vs. hypoxic insult (shock liver). Improving with IVF. 10. HTN: BP 152/87. On Metoprolol, Lisinopril and Clonidine at home. Will hold and monitor vitals, add step-elizondo as necessary. 11. DVT/GI Prophylaxis: Heparin 5000 units SQ TID. Protonix 40 mg IV QD. Patient continues to be on ventilator support. Attempt to wean patient off sedation resulted in agitation and tachycardia with elevated BP as per reports ( possibly due to DT). Patient also treated for aspiration pneumonia. Neurology on consult for metabolic encephalopathy.
[2018-06-22 18:10] LABS: Glucose,Whole Blood 99 mg/dL (75-99)
[2018-06-22] MEDS: ASPIRIN 300 MG SUPP RECTAL SCH (18:20)
--- NOTE | 2018-06-22 19:18 | P.PN ---
Subjective Progress Note Date: 06/22/18 This patient is a 73-year-old male who was seen in neurology consultation yesterday for evaluation of altered mental status following intubation. Patient has a history of alcohol use and apparently was visiting from [facility] in the [facility] and was last noted to be with friends and had consume some alcohol. He was found next day unresponsive at home and was intubated and admitted to the hospital and subsequently transferred to the intensive care unit. Patient's downtime was unknown but he did appear to have severe hypoxic injury on initial evaluation in the emergency room. Yesterday on neurological examination he was showing evidence of possible myoclonic type activity in the upper extremities and upper thoracic region. Patient underwent a routine EEG today for further evaluation to rule out nonconvulsive status epilepticus. EEG was reviewed and is diffusely slow with no evidence of any epileptiform discharges. EEG would be consistent with a moderate to severe diffuse hypoxic/ischemic encephalopathy. The patient was given a drug holiday yesterday. This did seem to show some improvement in his overall mental status during this interval. He did seem to follow some commands according to the ICU nursing staff. He does have evidence suggesting a hypoxic/ischemic encephalopathy producing much of his current status. Patient remains intubated in the intensive care unit. We will continue to follow his progress closely in the intensive care unit. Objective - Vital Signs Vital signs: Vital Signs Temp 98.4 F 06/22/18 16:00 Pulse 102 H 06/22/18 17:00 Resp 15 06/22/18 17:00 BP 162/96 06/22/18 17:00 Pulse Ox 97 06/22/18 17:00 Intake & Output 06/21/18 06/22/18 06/22/18 18:59 06:59 18:59 Intake Total 8366.257 1761.5 1423.109 Output Total 243 604 9941 Balance 146.780 8507.5 353.109 Weight 98.5 kg 99 kg Intake: IV 1100 1250.0 900 Piperacillin-Tazobactam 3 50.0 .375 gm In Dextrose/Water 1 50ml.bag @ 12.5 mls/hr IVPB ONCE [facility] Rx#: [id number] Sodium Chloride 0.9% 1, 1100 1200 900 000 ml @ 100 mls/hr IV . Q10H [facility] Rx#:[id number] Intake, IV Titration 262.500 112.5 293.109 Amount Piperacillin-Tazobactam 3 62.5 12.5 .375 gm In Dextrose/Water 1 50ml.bag @ 12.5 mls/hr IVPB Q8HR [facility] Rx#: [id number] Propofol 1,000 mg In 200.000 100 293.109 Empty Bag 1 bag @ Titrate IV .Q0M [facility] Rx#: [id number] Tube Feeding 180 500 200 Other 90 90 30 Output: Urine 717 364 2120 Other: Voiding Method Indwelling Catheter Indwelling Catheter Indwelling Catheter - Exam Physical examination: PHYSICAL EXAMINATION: Patient is resting comfortably in bed. VITAL SIGNS: Blood pressure is [159/90]. Heart rate is [102]. Respiration is [20 ]. Temperature is [98.7]. HEENT: Head is atraumatic, neck is supple, there were no carotid bruits. CHEST: Lungs are clear to auscultation and percussion. CARDIAC: S1, S2 normal rate and rhythm. There is no murmur. ABDOMEN: Soft and nontender. Bowel sounds are present. EXTREMITIES: There is no pedal edema. Peripheral pulses are present. Neurological examination: Patient's neurological examination is unchanged from yesterday. Patient remains intubated on the ventilator and lethargic. - Labs CBC & Chem 7: 06/22/18 04:30 06/22/18 04:30 Labs: Abnormal Lab Results - Last 24 Hours (Table) 06/21/18 06/22/18 06/22/18 Range/Units 23:39 04:30 04:30 RBC 3.57 L (4.30-5.90) m/uL Hgb 11.0 L (13.0-17.5) gm/dL Hct 33.4 L (39.0-53.0) % RDW 17.0 H (11.5-15.5) % Plt Count 102 L (150-450) k/uL ABG pH (7.35-7.45) ABG HCO3 (21-25) mmol/L ABG Total CO2 (19-24) mmol/L ABG O2 Saturation (94-97) % Chloride 108 H (98-107) mmol/L Glucose 110 H (74-99) mg/dL POC Glucose (mg/dL) 100 H (75-99) mg/dL Calcium 8.1 L (8.4-10.2) mg/dL Creatine Kinase 2335 H* (55-170) U/L 06/22/18 06/22/18 06/22/18 Range/Units 05:53 07:19 11:54 RBC (4.30-5.90) m/uL Hgb (13.0-17.5) gm/dL Hct (39.0-53.0) % RDW (11.5-15.5) % Plt Count (150-450) k/uL ABG pH 7.47 H (7.35-7.45) ABG HCO3 30 H (21-25) mmol/L ABG Total CO2 31 H (19-24) mmol/L ABG O2 Saturation 97.4 H (94-97) % Chloride (98-107) mmol/L Glucose (74-99) mg/dL POC Glucose (mg/dL) 100 H 100 H (75-99) mg/dL Calcium (8.4-10.2) mg/dL Creatine Kinase (55-170) U/L Microbiology - Last 24 Hours (Table) 06/21/18 12:09 Gram Stain - Preliminary Sputum Sputum Culture - Preliminary 06/19/18 13:23 Blood Culture - Preliminary Blood No Growth after 48 hours Assessment and Plan (1) Hypoxic ischemic encephalopathy Current Visit: Yes Status: Acute Code(s): P91.60 - HYPOXIC ISCHEMIC ENCEPHALOPATHY [HIE], UNSPECIFIED SNOMED Code(s): 941928088 (2) Acute metabolic encephalopathy Current Visit: Yes Status: Acute Code(s): G93.41 - METABOLIC ENCEPHALOPATHY SNOMED Code(s): 40853285 (3) Acute renal failure Current Visit: Yes Status: Acute Code(s): N17.9 - ACUTE KIDNEY FAILURE, UNSPECIFIED SNOMED Code(s): 06970631 (4) Chronic alcoholism Current Visit: Yes Status: Acute Code(s): F10.20 - ALCOHOL DEPENDENCE, UNCOMPLICATED SNOMED Code(s): 6506612 (5) Rhabdomyolysis Current Visit: Yes Status: Acute Code(s): M62.82 - RHABDOMYOLYSIS SNOMED Code(s): 402713646 Plan: This patient is a 73-year-old right-handed white male who was found unresponsive and collapsed in his apartment early this morning. Patient was in his apartment in [place] and cervical friends had tried to get in touch with him this morning unsuccessfully. They went to his apartment and found collapsed on the floor. He was having difficulty breathing and was unresponsive. EMS was called to the scene and he was noted to have a oxygen saturation in the mid 70s. He was placed on oxygen mask and transported immediately by EMS to the emergency room at [facility]. He was seen in the ER by Dr. Baires. He was sent for a computed tomography scan of the brain which failed to reveal any acute changes. He was intubated due to impending respiratory failure and was transferred to the intensive care unit for further management. Patient has a history of chronic alcohol is him. His alcohol level in the emergency room was less than 10. He had a very elevated creatine kinase over 20,000. This was felt to be secondary to his collapse and acute rhabdomyolysis due to extended period of time being collapsed on the floor. The patient was transferred to the intensive care unit. Neurology was consulted this evening for further evaluation. He was noted to have some muscle twitching and myoclonic-like movements of the upper thoracic region. This is felt to be possibly related to his severe hypoxic/ischemic encephalopathy. It is unclear whether this patient may have alcohol related withdrawal syndrome as well. We have recommended a stat EEG to be done for the patient today. His EEG was reviewed and did reveal diffuse slow rhythm in the background. We will also obtain stat laboratory testing to include a prolactin level as well as a d-dimer. The patient has no previous history of seizures or alcohol withdrawal seizures in the past. At this time we will await to review his EEG before placing him on any anticonvulsant medication. We will check his prolactin level as well to make sure this comes back in a normal range. His prolactin level came back at 9.6 and this is within normal limits. No evidence to collaborate with possible underlying seizure disorder based on this result. He is to continue with the CIWA protocol at this time. He does have history of alcohol abuse in the past. Apparently there is also a very strong family history of alcohol is some. Apparently the patient was given a drug holiday today and did show some signs of improvement in his mental status. They will try again weaning parameters were him tomorrow. We will continue to monitor his progress closely in the intensive care unit. This patient's overall prognosis at this time remains very guarded. We will continue close neurological follow-up with this patient in the intensive care unit. Case was discussed at length today with the ICU nursing staff and they're aware of our recommendations. We will plan to reevaluate the patient again tomorrow in the ICU for further management and recommendations. Once again his overall prognosis at this time remains very guarded.
[2018-06-23] MEDS: HEPARIN SODIUM,PORCINE 5,000 UNIT/ML 1 ML VIAL SQ SCH ×3 (00:28→16:39)
[2018-06-23] MEDS: PIPERACILLIN-TAZOBACTAM 3.375 GM in DEXTROSE/WATER 1 50ML.BAG IVPB SCH ×3 (00:28→16:38)
[2018-06-23] MEDS: SODIUM CHLORIDE 0.9% 1,000 ML IV SCH ×3 (00:28→20:09)
[2018-06-23] MEDS: LORazepam 2 MG/ML INJ IV PRN ×3 (03:05→08:39)
[2018-06-23] MEDS: IPRATROPIUM-ALBUTEROL 3 ML NEB INHALATION SCH ×6 (04:15→23:13)
[2018-06-23 04:24] LABS: Anisocytosis Slight; Basophils % (A) 0 %; Eosinophils # (A) 0.6 k/uL (0-0.7); Eosinophils % (A) 9 %; HGB 10.7 gm/dL (13.0-17.5); Lymphocytes # (A) 1.2 k/uL (1.0-4.8); Lymphocytes % (A) 18 %; MCH 31.6 pg (25.0-35.0); MCHC 33.4 g/dL (31.0-37.0); MCV 94.7 fL (80.0-100.0); Mean Platelet Volume 8.7; Monocytes # (A) 0.4 k/uL (0-1.0); Monocytes % (A) 6 %; Neutrophils # (A) 4.5 k/uL (1.3-7.7); Neutrophils % (A) 66 %; Platelet Count 117 k/uL (150-450); RBC 3.38 m/uL (4.30-5.90); RDW 16.9 % (11.5-15.5); WBC 6.8 k/uL (3.8-10.6)
[2018-06-23 04:51] LABS: Anion Gap 3 mmol/L; Blood Urea Nitrogen 16 mg/dL (9-20); Calcium 8.3 mg/dL (8.4-10.2); Carbon Dioxide 29 mmol/L (22-30); Chloride 108 mmol/L (98-107); Glucose 112 mg/dL (74-99); Magnesium 1.9 mg/dL (1.6-2.3); Phosphorus 3.6 mg/dL (2.5-4.5); Potassium 3.6 mmol/L (3.5-5.1); Sodium 140 mmol/L (137-145)
[2018-06-23] MEDS ORDERED: POTASSIUM BICARBONATE/CIT AC 20 MEQ TABLET.EFF NG-TUBE SCH ×2 (06:00→11:00)
[2018-06-23] MEDS: MAGNESIUM SULFATE-D5W PMX 1 GM in DEXTROSE/WATER 1 100ML.BAG IVPB SCH ×2 (06:05→07:04)
[2018-06-23 07:19] LABS: ABG HCO3 30 mmol/L (21-25); ABG PCO2 40 mmHg (35-45); ABG PH 7.47 (7.35-7.45); ABG PO2 104 mmHg (83-108); ABG TCO2 31 mmol/L (19-24)
--- NOTE | 2018-06-23 09:22 | XR ---
EXAMINATION TYPE: XR chest 1V portable DATE OF EXAM: 06/23/2018 COMPARISON: 06/22/2018 HISTORY: Tube placement TECHNIQUE: Single frontal view of the chest is obtained. FINDINGS: ET and NG tubes stable. Bilateral infiltrates are stable. Limited inspiration. Heart size is at the upper limits of normal. No pneumothorax. Arthropathy of the shoulders. Tiny bilateral pleur al effusions. IMPRESSION: 1. Basilar consolidation and tiny effusions are stable.
[2018-06-23] MEDS: PANTOPRAZOLE 40 MG/10 ML VIAL IVP SCH (09:24)
[2018-06-23] MEDS: ASPIRIN 300 MG SUPP RECTAL SCH (10:37)
[2018-06-23] MEDS: CHLORHEXIDINE GLUCONATE 15 ML CUP MUCOUS MEM SCH ×2 (10:38→20:08)
[2018-06-23] MEDS: THIAMINE 100 MG/ML 2 ML VIAL IVP SCH (10:38)
[2018-06-23] MEDS: QUEtiapine 25 MG TAB PO SCH ×2 (10:38→20:24)
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
[2018-06-23 11:50] LABS: Hepatitis A Antibody IgM Non-Reactive (Non-Reactive); Hepatitis B Core IgM Non-Reactive (Non-Reactive)
[2018-06-23 11:57] LABS: Glucose,Whole Blood 117 mg/dL (75-99)
--- NOTE | 2018-06-23 17:37 | P.PN ---
Subjective Progress Note Date: 06/23/18 Principal diagnosis: Acute respiratory failure, metabolic encephalopathy. Patient was seen and examined. No acute events overnight. Per reports, sedation weaned this morning but patient remains extremely agitated, tachycardic and hypertensive. His vent settings show tidal volume 500, FiO2 40 and PEEP of 5. CBC shows hemoglobin of 10.7, hematocrit of 32, platelet count of 117. Objective - Vital Signs Vital signs: Vital Signs Temp 97.6 F 06/23/18 12:00 Pulse 82 06/23/18 12:00 Resp 15 06/23/18 12:00 BP 129/73 06/23/18 12:00 Pulse Ox 97 06/23/18 12:00 Intake & Output 06/22/18 06/23/18 06/23/18 18:59 06:59 18:59 Intake Total 6784.080 0824.472 1017 Output Total 1360 860 665 Balance 542.577 5737.472 352 Weight 99.4 kg Intake: IV 1237.5 1212.5 605 Piperacillin-Tazobactam 3 37.5 12.5 .375 gm In Dextrose/Water 1 50ml.bag @ 12.5 mls/hr IVPB ONCE [facility] Rx#: [id number] Sodium Chloride 0.9% 1, 1200 1200 605 000 ml @ 100 mls/hr IV . Q10H [facility] Rx#:[id number] Intake, IV Titration 293.109 181.972 100 Amount Propofol 1,000 mg In 293.109 181.972 100 Empty Bag 1 bag @ Titrate IV .Q0M [facility] Rx#: [id number] Tube Feeding 356 624 312 Other 60 90 Output: Urine 1360 860 665 Other: Voiding Method Indwelling Catheter Indwelling Catheter Indwelling Catheter - Exam General: [Unresponsive, intubated with NG tube] [appears at stated age] Derm: [warm], [dry] Head: [atraumatic], [normocephalic], [symmetric] Eyes: [EOMI], [no lid lag], [anicteric sclera] Mouth: [no lip lesion], [mucus membranes moist] Cardiovascular: [S1S2 reg], [no murmur], [positive DP pulse bilateral] Lungs: [Coarse breath sounds bilateral], [no rhonchi, no rales] , [no accessory muscle use] Abdominal: [soft], [ nontender to palpation], [no guarding], [no appreciable organomegaly] Ext: [no gross muscle atrophy], [no edema], [no contractures] - Labs CBC & Chem 7: 06/23/18 04:15 06/23/18 12:12 Labs: Abnormal Lab Results - Last 24 Hours (Table) 06/23/18 06/23/18 06/23/18 Range/Units 04:15 04:15 07:17 RBC 3.38 L (4.30-5.90) m/uL Hgb 10.7 L (13.0-17.5) gm/dL Hct 32.0 L (39.0-53.0) % RDW 16.9 H (11.5-15.5) % Plt Count 117 L (150-450) k/uL ABG pH 7.47 H (7.35-7.45) ABG HCO3 30 H (21-25) mmol/L ABG Total CO2 31 H (19-24) mmol/L ABG O2 Saturation 99.0 H (94-97) % Chloride 108 H (98-107) mmol/L Glucose 112 H (74-99) mg/dL POC Glucose (mg/dL) (75-99) mg/dL Calcium 8.3 L (8.4-10.2) mg/dL 06/23/18 Range/Units 11:54 RBC (4.30-5.90) m/uL Hgb (13.0-17.5) gm/dL Hct (39.0-53.0) % RDW (11.5-15.5) % Plt Count (150-450) k/uL ABG pH (7.35-7.45) ABG HCO3 (21-25) mmol/L ABG Total CO2 (19-24) mmol/L ABG O2 Saturation (94-97) % Chloride (98-107) mmol/L Glucose (74-99) mg/dL POC Glucose (mg/dL) 117 H (75-99) mg/dL Calcium (8.4-10.2) mg/dL Microbiology - Last 24 Hours (Table) 06/19/18 13:23 Blood Culture - Preliminary Blood No Growth after 72 hours 06/21/18 12:09 Gram Stain - Preliminary Sputum Sputum Culture - Preliminary Assessment and Plan Assessment: Assessment and Plan 1. Acute respiratory failure: Thought to be secondary to Aspiration PNA. CXR shows basilar atelectasis. Lactic acid 2.1 on admission, 1.3 on 06/20. ABG shows pH 7.47, pCO 40 and HCO3 29 (primary respiratory alkalosis with compensated metabolic acidosis). Elevate HOB. Aspiration precautions. NPO pending swallow eval when able. Full ventilator support, wean as tolerated. Continue DuoNeb Q4H. Continue Zosyn 3.376g IV TID. Sputum Cx negative, BCX prelim negative at 72H. 2. Acute metabolic encephalopathy - Likely secondary to delirium tremens vs. hypoxic encephalopathy (from aspiration PNA) - UDS negative, EtOH level < 10 (but with heavy h/o EtOH abuse) - B12 and RPR negative. - Neurology consulted - r/o CVA - CT brain: No acute intracranial abnormality (06/19) - CT brain: No acute intracranial abnormality (06/20) - CUS: No carotid stenosis - Echo: EF 55-60% with mild LVH - r/o seizure - EEG shows severe widespread diffuse disturbance in cerebral function without epileptiform abnormalities. - Prolactin 9.6 within normal limits - Neurochecks. Seizure precautions. NPO pending swallow eval when able. CIWA protocol and Ativan 2 mg IV Q1H PRN for agitation. Started Seroquel 25 mg PO BID. FU Neurology 3. Rhabdomyolysis: Secondary to dehydration vs seizure. Initially 26279 on admission, trending down to 2335 this AM. Continue NS at 100 cc/h. Monitor renal function. 4. ANTONIO: BUN 26 Cr 3.10 on admission, likely secondary to rhabdomyolysis. Normalized this morning with a Cr of 0.94. Continue NS at 100 cc/h. Avoid nephrotoxins. Daily BMP. 5. EtOH abuse: CIWA protocol. Ativan IV PRN for withdrawal. Thiamine 100 mg IV QD. 6. Troponemia: Likely due to hypoxic insult. Trop 0.054, 0.091, 0.075 with EKG showing NSR (ACS ruled out). Continue ASA 325 mg PO QD. Telemetry monitoring. 7. Anemia: Hg 10.7 Hct 32.0 MCV 94.7. Normal Hg on admission, likely dilutional. Daily CBC. 8. Thrombocytopenia: Plt 117. Monitor as patient is on Heparin and Protonix. Likely related to EtOH abuse. Acute hep panel negative. Daily CBC. 9. Transaminitis: AST 497 ALT 85 downtrending to AST 254 and ALT 67. Due to EtOH abuse vs. hypoxic insult (shock liver). Improving with IVF. 10. HTN: BP 152/87. On Metoprolol, Lisinopril and Clonidine at home. Will hold and monitor vitals, add step-elizondo as necessary. 11. DVT/GI Prophylaxis: Heparin 5000 units SQ TID. Protonix 40 mg IV QD. Patient continues to be on ventilator support. Attempt to wean patient off sedation resulted in agitation and tachycardia with elevated BP as per reports ( possibly due to DT). Patient also treated for aspiration pneumonia. Neurology on consult for metabolic encephalopathy.
[2018-06-23 18:08] LABS: Glucose,Whole Blood 108 mg/dL (75-99)
[2018-06-23] MEDS: PROPOFOL 1,000 MG in EMPTY BAG 1 BAG IV SCH ×2 (19:07→22:08)
[2018-06-24 00:02] LABS: Glucose,Whole Blood 120 mg/dL (75-99)
[2018-06-24] MEDS: LORazepam 2 MG/ML INJ IV PRN ×3 (00:21→17:59)
[2018-06-24] MEDS: PIPERACILLIN-TAZOBACTAM 3.375 GM in DEXTROSE/WATER 1 50ML.BAG IVPB SCH ×3 (00:21→15:35)
[2018-06-24] MEDS: HEPARIN SODIUM,PORCINE 5,000 UNIT/ML 1 ML VIAL SQ SCH ×3 (00:21→15:35)
[2018-06-24] MEDS: PROPOFOL 1,000 MG in EMPTY BAG 1 BAG IV SCH ×3 (01:58→08:42)
[2018-06-24] MEDS: IPRATROPIUM-ALBUTEROL 3 ML NEB INHALATION SCH ×5 (03:56→20:21)
[2018-06-24 04:43] LABS: Anisocytosis Slight; Basophils % (A) 0 %; Eosinophils # (A) 0.3 k/uL (0-0.7); Eosinophils % (A) 3 %; HCT 38.9 % (39.0-53.0); HGB 12.7 gm/dL (13.0-17.5); Lymphocytes # (A) 1.2 k/uL (1.0-4.8); Lymphocytes % (A) 13 %; MCH 30.4 pg (25.0-35.0); MCHC 32.5 g/dL (31.0-37.0); MCV 93.5 fL (80.0-100.0); Mean Platelet Volume 8.6; Monocytes # (A) 0.6 k/uL (0-1.0); Monocytes % (A) 6 %; Neutrophils # (A) 7.2 k/uL (1.3-7.7); Neutrophils % (A) 76 %; Platelet Count 147 k/uL (150-450); RBC 4.16 m/uL (4.30-5.90); RDW 16.9 % (11.5-15.5); WBC 9.5 k/uL (3.8-10.6)
[2018-06-24 04:52] LABS: Anion Gap 4 mmol/L; Blood Urea Nitrogen 16 mg/dL (9-20); Calcium 8.7 mg/dL (8.4-10.2); Carbon Dioxide 29 mmol/L (22-30); Chloride 110 mmol/L (98-107); Creatine Kinase 514 U/L (55-170); Glucose 121 mg/dL (74-99); Magnesium 1.9 mg/dL (1.6-2.3); Phosphorus 3.9 mg/dL (2.5-4.5); Potassium 3.9 mmol/L (3.5-5.1); Sodium 143 mmol/L (137-145)
[2018-06-24] MEDS: METOPROLOL TARTRATE 50 MG TAB PO SCH ×2 (05:35→09:00)
[2018-06-24] MEDS: MAGNESIUM SULFATE-D5W PMX 1 GM in DEXTROSE/WATER 1 100ML.BAG IVPB SCH ×2 (05:35→06:52)
[2018-06-24] MEDS: SODIUM CHLORIDE 0.9% 1,000 ML IV SCH ×2 (05:40→15:41)
[2018-06-24] MEDS ORDERED: POTASSIUM BICARBONATE/CIT AC 20 MEQ TABLET.EFF NG-TUBE SCH (06:00)
[2018-06-24 06:57] LABS: Glucose,Whole Blood 117 mg/dL (75-99)
[2018-06-24 07:37] LABS: ABG Base Excess 6.4 mmol/L; ABG HCO3 31 mmol/L (21-25); ABG Oxygen Saturation 98.4 % (94-97); ABG PCO2 48 mmHg (35-45); ABG PH 7.42 (7.35-7.45); ABG PO2 117 mmHg (83-108); ABG TCO2 32 mmol/L (19-24)
[2018-06-24] MEDS: THIAMINE 100 MG/ML 2 ML VIAL IVP SCH (09:03)
[2018-06-24] MEDS: ASPIRIN 300 MG SUPP RECTAL SCH (09:03)
[2018-06-24] MEDS: PANTOPRAZOLE 40 MG/10 ML VIAL IVP SCH (09:03)
[2018-06-24] MEDS: QUEtiapine 25 MG TAB PO SCH ×2 (09:03→23:21)
--- NOTE | 2018-06-24 09:43 | XR ---
EXAMINATION TYPE: XR chest 1V portable DATE OF EXAM: 06/24/2018 COMPARISON: Prior chest x-ray 06/23/2018 HISTORY: Intubated TECHNIQUE: Single frontal view of the chest is obtained. FINDINGS: Endotracheal and NG tube are overlying appropriate positions. There are overlying cardiac leads and the patient is rotated. Patchy bibasilar density is present. There is no evident pneumothor ax. Heart size may be accentuated by rotation. Pulmonary vascularity and golden within normal limits. IMPRESSION: Rotated exam, probable basilar atelectasis, difficult to exclude lower lobe edema versus pneumonia, effusion. Follow-up recommended.
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
[2018-06-24 12:18] LABS: Glucose,Whole Blood 93 mg/dL (75-99)
[2018-06-24 14:45] VITALS: BMI 32.5
--- NOTE | 2018-06-24 15:07 | P.PN ---
Subjective Progress Note Date: 06/24/18 Principal diagnosis: acute respiratory failure, metabolic encephalopathy. Patient was seen and examined. No acute events overnight. Extubated today after being off sedation for one hour. Per MICU TAILER IN, patient was AOx3 after extubation. Lethargic at the time of interview. Objective - Vital Signs Vital signs: Vital Signs Temp 98.1 F 06/24/18 13:00 Pulse 108 H 06/24/18 14:00 Resp 18 06/24/18 14:00 BP 169/99 06/24/18 14:00 Pulse Ox 95 06/24/18 14:00 Intake & Output 06/23/18 06/24/18 06/24/18 18:59 06:59 18:59 Intake Total 2131 7749.841 2490.95 Output Total 3849 418 5640 Balance 726 783.019 112.95 Weight 100.1 kg 100.1 kg Intake: IV 1305 1262.5 1037.5 Magnesium Sulfate-D5w Pmx 100 100 1 gm In Dextrose/Water 1 100ml.bag @ 100 mls/hr IVPB Q1H [facility] Rx#: [id number] Piperacillin-Tazobactam 3 62.5 37.5 .375 gm In Dextrose/Water 1 50ml.bag @ 12.5 mls/hr IVPB Q8HR [facility] Rx#: [id number] Sodium Chloride 0.9% 1, 1305 1100 900 000 ml @ 100 mls/hr IV . Q10H [facility] Rx#:[id number] Intake, IV Titration 100 262.519 200.45 Amount Magnesium Sulfate-D5w Pmx 100 1 gm In Dextrose/Water 1 100ml.bag @ 100 mls/hr IVPB Q1H [facility] Rx#: [id number] Propofol 1,000 mg In 100 262.519 100.45 Empty Bag 1 bag @ Titrate IV .Q0M [facility] Rx#: [id number] Tube Feeding 676 208 Other 50 Output: Urine 6621 805 8347 Other: Voiding Method Indwelling Catheter Indwelling Catheter Indwelling Catheter - Exam General: [Lethargic, head turned to the left] [appears at stated age] Derm: [warm], [dry] Head: [atraumatic], [normocephalic], [symmetric] Eyes: [EOMI], [no lid lag], [anicteric sclera] Mouth: [no lip lesion], [mucus membranes moist] Cardiovascular: [S1S2 reg], [no murmur], [positive DP pulse bilateral] Lungs: [Coarse breath sounds bilateral], [no rhonchi, no rales] , [no accessory muscle use] Abdominal: [soft], [ nontender to palpation], [no guarding], [no appreciable organomegaly] Ext: [no gross muscle atrophy], [no edema], [no contractures] Neuro: Able to follow simple commands (squeezing fingers, wiggling toes) successfully. - Labs CBC & Chem 7: 06/24/18 04:25 06/24/18 04:25 Labs: Abnormal Lab Results - Last 24 Hours (Table) 06/23/18 06/24/18 06/24/18 Range/Units 18:06 00:00 04:25 RBC 4.16 L (4.30-5.90) m/uL Hgb 12.7 L (13.0-17.5) gm/dL Hct 38.9 L (39.0-53.0) % RDW 16.9 H (11.5-15.5) % Plt Count 147 L (150-450) k/uL ABG pCO2 (35-45) mmHg ABG pO2 (83-108) mmHg ABG HCO3 (21-25) mmol/L ABG Total CO2 (19-24) mmol/L ABG O2 Saturation (94-97) % Chloride (98-107) mmol/L Glucose (74-99) mg/dL POC Glucose (mg/dL) 108 H 120 H (75-99) mg/dL Creatine Kinase (55-170) U/L 06/24/18 06/24/18 06/24/18 Range/Units 04:25 06:56 07:35 RBC (4.30-5.90) m/uL Hgb (13.0-17.5) gm/dL Hct (39.0-53.0) % RDW (11.5-15.5) % Plt Count (150-450) k/uL ABG pCO2 48 H (35-45) mmHg ABG pO2 117 H (83-108) mmHg ABG HCO3 31 H (21-25) mmol/L ABG Total CO2 32 H (19-24) mmol/L ABG O2 Saturation 98.4 H (94-97) % Chloride 110 H (98-107) mmol/L Glucose 121 H (74-99) mg/dL POC Glucose (mg/dL) 117 H (75-99) mg/dL Creatine Kinase 514 H (55-170) U/L Microbiology - Last 24 Hours (Table) 06/21/18 12:09 Gram Stain - Final Sputum Sputum Culture - Final 06/19/18 13:23 Blood Culture - Preliminary Blood No Growth after 96 hours Assessment and Plan Assessment: Assessment and Plan 1. Acute respiratory failure: Thought to be secondary to Aspiration PNA. CXR shows basilar atelectasis. Lactic acid 2.1 on admission, 1.3 on 06/20. ABG shows pH 7.42, pCO 48 and HCO3 29 (primary metabolic alkalosis with compensated respiratory acidosis). Elevate HOB. Aspiration precautions. NPO pending swallow eval when able. Continue DuoNeb Q4H. Continue Zosyn 3.376g IV TID. Sputum Cx negative, BCX prelim negative at 72H. 2. Acute metabolic encephalopathy - Likely secondary to delirium tremens vs. hypoxic encephalopathy (from aspiration PNA) - UDS negative, EtOH level < 10 (but with heavy h/o EtOH abuse) - B12 and RPR negative. - Neurology consulted - r/o CVA - CT brain: No acute intracranial abnormality (06/19) - CT brain: No acute intracranial abnormality (06/20) - CUS: No carotid stenosis - Echo: EF 55-60% with mild LVH - r/o seizure - EEG shows severe widespread diffuse disturbance in cerebral function without epileptiform abnormalities. - Prolactin 9.6 within normal limits - Neurochecks. Seizure precautions. NPO pending swallow eval when able. CIWA protocol and Ativan 2 mg IV Q1H PRN for agitation. Started Seroquel 25 mg PO BID. FU Neurology 3. Rhabdomyolysis: Secondary to dehydration vs seizure. Initially 92665 on admission, trending down to 514 this AM. Continue NS at 100 cc/h. Monitor renal function. 4. ANTONIO: BUN 26 Cr 3.10 on admission, likely secondary to rhabdomyolysis. Normalized this morning with a Cr of 0.97. Continue NS at 100 cc/h. Avoid nephrotoxins. Daily BMP. 5. EtOH abuse: CIWA protocol. Ativan IV PRN for withdrawal. Thiamine 100 mg IV QD. 6. Troponemia: Likely due to hypoxic insult. Trop 0.054, 0.091, 0.075 with EKG showing NSR (ACS ruled out). Continue ASA 325 mg PO QD. Telemetry monitoring. 7. Anemia: Hg 12.7 Hct 38.9 MCV 93.5. Normal Hg on admission, likely dilutional. Daily CBC. 8. Thrombocytopenia: Plt 147. Monitor as patient is on Heparin and Protonix. Likely related to EtOH abuse. Acute hep panel negative. Daily CBC. 9. Transaminitis: AST 497 ALT 85 downtrending to AST 254 and ALT 67. Due to EtOH abuse vs. hypoxic insult (shock liver). Improving with IVF. 10. HTN: BP 169/99. Restart Metoprolol 50 mg PO BID. Hold Lisinopril and Clonidine. Monitor vitals, add step-elizondo as necessary. 11. DVT/GI Prophylaxis: Heparin 5000 units SQ TID. Protonix 40 mg IV QD. Patient weaned off the ventilator. Can get better idea of his mentation tomorrow. Patient also treated for aspiration pneumonia. Neurology on consult for metabolic encephalopathy.
[2018-06-24] MEDS: CHLORHEXIDINE GLUCONATE 15 ML CUP MUCOUS MEM SCH (15:34)
[2018-06-24 18:31] LABS: Glucose,Whole Blood 106 mg/dL (75-99)
[2018-06-24] MEDS ORDERED: METOPROLOL TARTRATE 50 MG TAB PO SCH (21:00)
[2018-06-24 21:19] LABS: Glucose,Whole Blood 108 mg/dL (75-99)
--- NOTE | 2018-06-24 21:51 | CT ---
EXAMINATION TYPE: CT brain wo con for TPA DATE OF EXAM: 06/24/2018 COMPARISON: 06/20/2018 HISTORY: Weakness CT DLP: mGycm Automated exposure control for dose reduction was used. FINDINGS: There is cerebral atrophy. There is no mass effect nor midline shift. There is no sign of intracrania l hemorrhage. Calvarium is intact. There is white matter mild hypodensity. IMPRESSION: CEREBRAL ATROPHY AND MILD CHRONIC SMALL VESSEL ISCHEMIA. NO CHANGE COMPARED TO LAST EXAM. NO ACUTE AB NORMALITY.
[2018-06-24 22:32] LABS: ALT 102 U/L (21-72); AST 161 U/L (17-59); Albumin 3.1 g/dL (3.5-5.0); Alkaline Phosphatase 72 U/L (38-126); Anion Gap 7 mmol/L; Blood Urea Nitrogen 17 mg/dL (9-20); Calcium 9.1 mg/dL (8.4-10.2); Carbon Dioxide 26 mmol/L (22-30); Chloride 107 mmol/L (98-107); Glucose 115 mg/dL (74-99); Partial Thromboplastin Time 23.4 sec (22.0-30.0); Potassium 3.6 mmol/L (3.5-5.1); Sodium 140 mmol/L (137-145); Total Bilirubin 1.6 mg/dL (0.2-1.3); Total Protein 5.8 g/dL (6.3-8.2)
[2018-06-24 22:33] LABS: Anisocytosis Slight; Basophils % (A) 0 %; Eosinophils # (A) 0.3 k/uL (0-0.7); Eosinophils % (A) 2 %; HCT 38.5 % (39.0-53.0); HGB 12.6 gm/dL (13.0-17.5); Lymphocytes # (A) 1.8 k/uL (1.0-4.8); Lymphocytes % (A) 13 %; MCH 30.4 pg (25.0-35.0); MCHC 32.7 g/dL (31.0-37.0); Mean Platelet Volume 7.7; Monocytes # (A) 0.8 k/uL (0-1.0); Monocytes % (A) 6 %; Neutrophils # (A) 10.7 k/uL (1.3-7.7); Neutrophils % (A) 77 %; Platelet Count 185 k/uL (150-450); RBC 4.14 m/uL (4.30-5.90); RDW 16.9 % (11.5-15.5); WBC 13.9 k/uL (3.8-10.6)
--- NOTE | 2018-06-24 22:33 | CT ---
EXAMINATION TYPE: CT angio head neck DATE OF EXAM: 06/24/2018 HISTORY: right sided facial drop COMPARISON: CT DLP: 317.8 mGycm. Automated Exposure Control for Dose Reduction was Utilized. TECHNIQUE: CTA scan of the neck is performed with IV Contrast, patient injected with 65 mL of Isovue 370, axial images are obtained, coronal and sagittal reformatted images are reviewed. Three-D recons tructed images are created on an independent workstation and reviewed. FINDINGS: There is normal branching pattern of the great vessels on the aortic arch. There is no evidence of ao rtic arch dissection or aneurysm. There is arterial flow in both vertebral arteries. Left is slightly larger than the right. There is arterial flow in the common internal and external carotid arteries bilaterally. The carotid artery bifurcations are widely patent with only minimal plaque formation. There is less than 10% narr owing. There is no evidence of carotid artery aneurysm or dissection. There is no vertebral dissectio n. There is arterial flow in the vertebrobasilar artery system. There is arterial flow in the anterior m iddle and posterior cerebral arteries. There is normal contrast opacification of the venous sinuses. There is no evidence of intracranial aneurysm or neovascularity. I see no evidence of arterial stenos is. IMPRESSION: Minimal atheromatous change at the carotid artery bifurcations. No evidence of any significant stenos is. Negative CT angiogram of the brain.
[2018-06-24] MEDS ORDERED: IPRATROPIUM-ALBUTEROL 3 ML NEB INHALATION PRN (23:43)
[2018-06-24 23:48] LABS: Glucose,Whole Blood 110 mg/dL (75-99)
[2018-06-25] MEDS: PIPERACILLIN-TAZOBACTAM 3.375 GM in DEXTROSE/WATER 1 50ML.BAG IVPB SCH ×3 (00:01→16:21)
[2018-06-25] MEDS: HEPARIN SODIUM,PORCINE 5,000 UNIT/ML 1 ML VIAL SQ SCH ×3 (00:01→16:20)
[2018-06-25] MEDS: POTASSIUM CHLORIDE 10 MEQ in WATER FOR INJECTION 1 100ML.BAG IVPB SCH ×2 (00:02→02:14)
[2018-06-25] MEDS: LORazepam 2 MG/ML INJ IV PRN (00:12)
[2018-06-25] MEDS: CLEVIDIPINE BUTYRATE 25 MG in EMPTY BAG 1 BAG IV SCH ×4 (02:14→20:47)
[2018-06-25] MEDS: SODIUM CHLORIDE 0.9% 1,000 ML IV SCH ×2 (04:39→15:09)
[2018-06-25 04:47] LABS: Anisocytosis Slight; Basophils % (A) 0 %; Eosinophils # (A) 0.3 k/uL (0-0.7); Eosinophils % (A) 2 %; HCT 41.8 % (39.0-53.0); HGB 13.9 gm/dL (13.0-17.5); Lymphocytes # (A) 1.5 k/uL (1.0-4.8); Lymphocytes % (A) 11 %; MCHC 33.2 g/dL (31.0-37.0); MCV 93.6 fL (80.0-100.0); Mean Platelet Volume 7.2; Monocytes # (A) 0.9 k/uL (0-1.0); Monocytes % (A) 6 %; Neutrophils % (A) 79 %; Platelet Count 174 k/uL (150-450); RBC 4.47 m/uL (4.30-5.90)
[2018-06-25 04:56] LABS: Anion Gap 7 mmol/L; Blood Urea Nitrogen 16 mg/dL (9-20); Calcium 9.4 mg/dL (8.4-10.2); Carbon Dioxide 26 mmol/L (22-30); Chloride 105 mmol/L (98-107); Glucose 121 mg/dL (74-99); Phosphorus 3.5 mg/dL (2.5-4.5); Sodium 138 mmol/L (137-145)
[2018-06-25 05:04] LABS: Potassium 4.1 mmol/L (3.5-5.1)
[2018-06-25 06:38] LABS: Glucose,Whole Blood 121 mg/dL (75-99)
[2018-06-25] MEDS: IPRATROPIUM-ALBUTEROL 3 ML NEB INHALATION SCH ×4 (07:35→19:15)
[2018-06-25] MEDS: PANTOPRAZOLE 40 MG/10 ML VIAL IVP SCH (07:53)
[2018-06-25] MEDS: THIAMINE 100 MG/ML 2 ML VIAL IVP SCH (07:53)
[2018-06-25] MEDS: QUEtiapine 25 MG TAB PO SCH (08:12)
[2018-06-25] MEDS: ASPIRIN 300 MG SUPP RECTAL SCH (08:13)
[2018-06-25] MEDS ORDERED: METOPROLOL TARTRATE 50 MG TAB PO SCH ×2 (09:00→21:00)
--- NOTE | 2018-06-25 09:01 | XR ---
EXAMINATION TYPE: XR chest 1V portable DATE OF EXAM: 06/25/2018 COMPARISON: 06/24/2018 HISTORY: Tube placement TECHNIQUE: Single frontal view of the chest is obtained. FINDINGS: ET and NG tube have been removed. There is persistent bilateral subsegmental consolidation and small effusion. No sizable pneumothorax. Reduced inspiration noted. Heart size stable. Arthropat hy of the shoulders. IMPRESSION: 1. Stable bilateral lower lobe infiltrate or atelectasis and tiny effusion.
[2018-06-25] MEDS ORDERED: METOPROLOL TARTRATE 50 MG TAB PO STA (09:37)
[2018-06-25] MEDS ORDERED: amLODIPine 5 MG TAB PO SCH (10:00)
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
[2018-06-25 12:00] LABS: Glucose,Whole Blood 117 mg/dL (75-99)
--- NOTE | 2018-06-25 14:43 | MR ---
EXAMINATION TYPE: MR brain wo con DATE OF EXAM: 06/25/2018 COMPARISON: CT brain from yesterday. HISTORY: Left sided facial/arm/leg weakness TECHNIQUE: Multiplanar, multisequence imaging of the brain and brainstem is performed without IV cont rast. FINDINGS: Diffusion weighted images demonstrate areas of increased signal on diffusion weighted images involvin g the subcortical occipital lobes bilaterally with diminished signal on ADC mapping, there is slightl y more inferior extension on the left noted. There is T2 hyperintensity and T1 hypointensity at this level. There is no worrisome extra-axial fluid collection. There is ventricular and sulcal prominence consis tent with diffuse cerebral atrophy. There are scattered foci of T2 hyperintensity seen throughout the deep and periventricular white matter bilaterally presumed on basis of product of chronic small vess el ischemic change. There are however T2 hyperintense cerebellar lesions noted for reference largest 1.4 cm lesion left cerebellar hemisphere axial image 10 is present without restricted diffusion. I garcia spect at least 6-8 additional scattered cerebellar lesions most larger than supratentorial lesions id entified. Midline structures demonstrate normal morphology. The craniocervical junction appears within normal limits. Normal vascular flow voids are present. Dominant left vertebral artery is present. Mild patch y fluid signal bilateral mastoid air cells is seen. The visualized sinuses are clear and the globes a re intact. Nasal septum is deviated to right of midline. IMPRESSION: 1. Areas of restricted diffusion bilateral occipital lobes most prominent subcortical levels worrisom e for acute infarct or ischemia. 2. Background mild to moderate diffuse cerebral atrophy and moderate nonspecific white matter changes , cerebellar lesions are noted bilaterally of uncertain etiology somewhat atypical for product of chr onic small vessel ischemic change. Other etiologies need to be considered.
--- NOTE | 2018-06-25 15:03 | P.PN ---
Subjective Progress Note Date: 06/25/18 Principal diagnosis: respiratory failure, metabolic encephalopathy Patient was seen and examined. No acute events overnight. Patient successfully extubated yesterday. Son was at bedside this morning. Son reports that father is not a heavy alcoholic, denies any withdrawal symptoms. Patient denies any complaints at this time. Per son, patient is returning back to his baseline though not quite yet. CT brain and angiogram ordered yesterday due to concerns of stroke from left-sided weakness. CT brain is negative for stroke and angiogram shows minimal atheromatous change in the carotid artery bifurcation with no evidence of significant stenosis. Objective - Vital Signs Vital signs: Vital Signs Temp 98.5 F 06/25/18 12:00 Pulse 94 06/25/18 13:00 Resp 18 06/25/18 13:00 BP 151/94 06/25/18 13:00 Pulse Ox 96 06/25/18 13:00 Intake & Output 06/24/18 06/25/18 06/25/18 18:59 06:59 18:59 Intake Total 1687.95 1200.000 750 Output Total 1750 2350 2050 Balance -62.05 -1150.000 -1300 Weight 100.1 kg 96.7 kg Intake: IV 1487.5 1150.0 750 Magnesium Sulfate-D5w Pmx 100 1 gm In Dextrose/Water 1 100ml.bag @ 100 mls/hr IVPB Q1H [facility] Rx#: [id number] Piperacillin-Tazobactam 3 87.5 50.0 50 .375 gm In Dextrose/Water 1 50ml.bag @ 12.5 mls/hr IVPB Q8HR [facility] Rx#: [id number] Potassium Chloride 10 meq 200 In Water For Injection 1 100ml.bag @ 100 mls/hr IVPB Q1H [facility] Rx#: [id number] Sodium Chloride 0.9% 1, 1300 900 700 000 ml @ 100 mls/hr IV . Q10H [facility] Rx#:[id number] Intake, IV Titration 200.45 50.000 Amount Clevidipine Butyrate 25 50.000 mg In Empty Bag 1 bag @ 1 MG/HR 2 mls/hr IV .Q24H [facility] Rx#:[id number] Magnesium Sulfate-D5w Pmx 100 1 gm In Dextrose/Water 1 100ml.bag @ 100 mls/hr IVPB Q1H [facility] Rx#: [id number] Propofol 1,000 mg In 100.45 Empty Bag 1 bag @ Titrate IV .Q0M [facility] Rx#: [id number] Output: Urine 1750 2350 0 Other: Voiding Method Indwelling Catheter Indwelling Catheter Indwelling Catheter - Exam General: [Lethargic, head turned to the left] [appears at stated age] Derm: [warm], [dry] Head: [atraumatic], [normocephalic], [symmetric] Eyes: [EOMI], [no lid lag], [anicteric sclera] Mouth: [no lip lesion], [mucus membranes moist] Cardiovascular: [S1S2 reg], [no murmur], [positive DP pulse bilateral] Lungs: [Coarse breath sounds bilateral], [no rhonchi, no rales] , [no accessory muscle use] Abdominal: [soft], [ nontender to palpation], [no guarding], [no appreciable organomegaly] Ext: [no gross muscle atrophy], [no edema], [no contractures] Neuro: Able to follow simple commands (squeezing fingers, wiggling toes) successfully. L facial droop. LUE 3/5, LLE 4/5, RU+RLE 5/5. Sensation intact to touch in all 4 extremities. - Labs CBC & Chem 7: 06/25/18 04:30 06/25/18 04:30 Labs: Abnormal Lab Results - Last 24 Hours (Table) 06/24/18 06/24/18 06/24/18 Range/Units 18:27 21:17 22:06 WBC 13.9 H (3.8-10.6) k/uL RBC 4.14 L (4.30-5.90) m/uL Hgb 12.6 L (13.0-17.5) gm/dL Hct 38.5 L (39.0-53.0) % RDW 16.9 H (11.5-15.5) % Neutrophils # 10.7 H (1.3-7.7) k/uL Glucose (74-99) mg/dL POC Glucose (mg/dL) 106 H 108 H (75-99) mg/dL Total Bilirubin (0.2-1.3) mg/dL AST (17-59) U/L ALT (21-72) U/L Total Protein (6.3-8.2) g/dL Albumin (3.5-5.0) g/dL 06/24/18 06/24/18 06/25/18 Range/Units 22:06 23:47 04:30 WBC 14.0 H (3.8-10.6) k/uL RBC (4.30-5.90) m/uL Hgb (13.0-17.5) gm/dL Hct (39.0-53.0) % RDW 17.0 H (11.5-15.5) % Neutrophils # 11.0 H (1.3-7.7) k/uL Glucose 115 H (74-99) mg/dL POC Glucose (mg/dL) 110 H (75-99) mg/dL Total Bilirubin 1.6 H (0.2-1.3) mg/dL AST 161 H (17-59) U/L ALT 102 H (21-72) U/L Total Protein 5.8 L (6.3-8.2) g/dL Albumin 3.1 L (3.5-5.0) g/dL 06/25/18 06/25/18 06/25/18 Range/Units 04:30 06:36 11:58 WBC (3.8-10.6) k/uL RBC (4.30-5.90) m/uL Hgb (13.0-17.5) gm/dL Hct (39.0-53.0) % RDW (11.5-15.5) % Neutrophils # (1.3-7.7) k/uL Glucose 121 H (74-99) mg/dL POC Glucose (mg/dL) 121 H 117 H (75-99) mg/dL Total Bilirubin (0.2-1.3) mg/dL AST (17-59) U/L ALT (21-72) U/L Total Protein (6.3-8.2) g/dL Albumin (3.5-5.0) g/dL Microbiology - Last 24 Hours (Table) 06/19/18 13:23 Blood Culture - Preliminary Blood No Growth after 120 hours Assessment and Plan Assessment: Assessment and Plan 1. L sided weakness: Concerns for CVA. CT brain and angiogram negative 06/24. FU MRI brain, Neurology consult, PT/OT 2. Acute respiratory failure: Resolving. Thought to be secondary to Aspiration PNA. CXR shows basilar atelectasis. Lactic acid 2.1 on admission, 1.3 on 06/20. ABG shows pH 7.42, pCO 48 and HCO3 29 (primary metabolic alkalosis with compensated respiratory acidosis). Elevate HOB. Aspiration precautions. NPO pending swallow eval when able. Continue DuoNeb Q4H. Continue Zosyn 3.376g IV TID. Sputum Cx negative, BCX prelim negative at 120H. 3. Acute metabolic encephalopathy - Likely secondary to delirium tremens vs. hypoxic encephalopathy (from aspiration PNA) - UDS negative, EtOH level < 10 (but with heavy h/o EtOH abuse) - B12 and RPR negative. - Neurology consulted - r/o CVA - CT brain: No acute intracranial abnormality (06/19) - CT brain: No acute intracranial abnormality (06/20) - CUS: No carotid stenosis - Echo: EF 55-60% with mild LVH - r/o seizure - EEG shows severe widespread diffuse disturbance in cerebral function without epileptiform abnormalities. - Prolactin 9.6 within normal limits - Neurochecks. Seizure precautions. NPO pending swallow eval when able. CIWA protocol and Ativan 2 mg IV Q1H PRN for agitation. Will DC Seroquel 25 mg PO BID (can worsen mentation). FU Neurology, MRI brain, PT/OT 4. EtOH abuse: CIWA protocol. Ativan IV PRN for withdrawal. Thiamine 100 mg IV QD. 5. Troponemia: Likely due to hypoxic insult. Trop 0.054, 0.091, 0.075 with EKG showing NSR (ACS ruled out). Continue ASA 325 mg PO QD. Telemetry monitoring. 6. Transaminitis: AST 497 ALT 85 downtrending to AST 161 and ALT 102. Due to EtOH abuse vs. hypoxic insult (shock liver). Improving with IVF. 7. HTN: BP 151/94. Restart Metoprolol 100 mg PO BID, Amlodipine 5 mg PO QD, Clevidipine IV. Hold Lisinopril and Clonidine. Monitor vitals, add step-elizondo as necessary. 8. DVT/GI Prophylaxis: Heparin 5000 units SQ TID. Protonix 40 mg IV QD. Rhabdomyolysis, ANTONIO on CKD and Anemia have all resolved. Patient's mentation improving as per son. He is pending MRI brain to exclude stroke as a cause for left-sided weakness. Patient also treated for aspiration pneumonia. Neurology on consult for metabolic encephalopathy and weakness.
[2018-06-25] MEDS ORDERED: amLODIPine 5 MG TAB PO STA (16:16)
[2018-06-25 17:48] LABS: Glucose,Whole Blood 99 mg/dL (75-99)
[2018-06-25 21:59] VITALS: TEMP 98.8
[2018-06-25 23:41] VITALS: BP 135/98; PULSE 92; RESP 13
--- NOTE | 2018-06-26 00:10 | P.PN ---
Subjective Progress Note Date: 06/25/18 This patient is a 73-year-old male who was seen in neurology consultation yesterday for evaluation of altered mental status following intubation. Patient has a history of alcohol use and apparently was visiting from [facility] in the [facility] and was last noted to be with friends and had consume some alcohol. He was found next day unresponsive at home and was intubated and admitted to the hospital and subsequently transferred to the intensive care unit. Patient's downtime was unknown but he did appear to have severe hypoxic injury on initial evaluation in the emergency room. Yesterday on neurological examination he was showing evidence of possible myoclonic type activity in the upper extremities and upper thoracic region. Patient underwent a routine EEG today for further evaluation to rule out nonconvulsive status epilepticus. EEG was reviewed and is diffusely slow with no evidence of any epileptiform discharges. EEG would be consistent with a moderate to severe diffuse hypoxic/ischemic encephalopathy. The patient was given a drug holiday yesterday. This did seem to show some improvement in his overall mental status during this interval. He did seem to follow some commands according to the ICU nursing staff. He does have evidence suggesting a hypoxic/ischemic encephalopathy producing much of his current status. A weaning trial was given today for this patient in the intensive care unit. Unfortunately this resulted in the patient becoming very agitated and tachycardic with a very elevated blood pressure. This was felt possibly due to delirium tremens. He is continuing on a CIWA protocol as well as thiamine supplementation. Attempts to wean the patient today were unsuccessful. He does have history of under lying thrombocytopenia and his last platelet count was 117,000. We will continue to monitor his condition closely in the intensive care unit. Several specialists are following the patient as well. Patient remains intubated in the intensive care unit. The patient was noted yesterday is demonstrating left-sided weakness. Since extubation he is also shown increasing episodes of confusion with hallucinations. He was sent for MRI of the brain which was completed today. The MRI results indicate areas of restricted diffusion bilaterally involving the occipital lobes. This was worrisome for acute infarct or ischemia. There was also moderate degree of diffuse cerebral atrophy with moderate nonspecific white matter changes involving the cerebellar hemisphere and periventricular regions of the brain as well. Etiology was somewhat atypical for chronic small vessel ischemia. We did review the results of the MRI today with the patient. He does remain off of the ventilator however still has episodes of confusion. We did discuss this case today with the neurologist foreign law consultant and [facility]. We did discuss the results of the MRI that was completed today. They're recommending the patient be transferred to [facility] neurology intensive care unit for further evaluation and treatment. Arrangements have been made to contact the transferred team this evening and Dr. Bonds was the physician who accepted this patient and transferred to [facility] neurology department. Her concerns are for possibility of paraneoplastic syndrome given his MRI findings. We did discuss the results of the MRI today with the patient. He does seem to understand the seriousness of his condition. We did discuss transferring him to [facility] this evening by EMS and all of his questions were answered. He is in full agreement and arrangements are currently being made to have this patient transferred by EMS to [facility] neurosurgery and neurology division. The patient remains clinically stable. He is remembering his history slowly but is still quite vague in general. We have recommended ongoing neurological evaluation and care for this patient at the tertiary center at [facility] with their expert opinion in regards to his MRI findings today. Possibility exists for possible cardioembolic stroke. He may require YOAN procedure once he is medically stable. Once again the patient is being arranged for transfer to [facility] neurology division under the care of Dr. Bonds. His overall prognosis at this time remains very guarded. We will continue to follow his progress closely in the intensive care unit. Objective - Vital Signs Vital signs: Vital Signs Temp 99.9 F H 06/25/18 16:00 Pulse 108 H 06/25/18 18:00 Resp 17 06/25/18 18:00 BP 177/106 06/25/18 18:00 Pulse Ox 92 L 06/25/18 18:00 Intake & Output 06/24/18 06/25/18 06/25/18 18:59 06:59 18:59 Intake Total 1687.95 2009.508 9802.133 Output Total 1750 2350 3450 Balance -62.05 -1150.000 -2089.867 Weight 100.1 kg 96.7 kg Intake: IV 1487.5 1150.0 1300 Magnesium Sulfate-D5w Pmx 100 1 gm In Dextrose/Water 1 100ml.bag @ 100 mls/hr IVPB Q1H [facility] Rx#: [id number] Piperacillin-Tazobactam 3 87.5 50.0 100 .375 gm In Dextrose/Water 1 50ml.bag @ 12.5 mls/hr IVPB Q8HR [facility] Rx#: [id number] Potassium Chloride 10 meq 200 In Water For Injection 1 100ml.bag @ 100 mls/hr IVPB Q1H [facility] Rx#: [id number] Sodium Chloride 0.9% 1, 2087 448 4292 000 ml @ 100 mls/hr IV . Q10H [facility] Rx#:[id number] Intake, IV Titration 200.45 50.000 60.133 Amount Clevidipine Butyrate 25 50.000 60.133 mg In Empty Bag 1 bag @ 1 MG/HR 2 mls/hr IV .Q24H [facility] Rx#:[id number] Magnesium Sulfate-D5w Pmx 100 1 gm In Dextrose/Water 1 100ml.bag @ 100 mls/hr IVPB Q1H [facility] Rx#: [id number] Propofol 1,000 mg In 100.45 Empty Bag 1 bag @ Titrate IV .Q0M [facility] Rx#: [id number] Output: Urine 1750 2350 3450 Other: Voiding Method Indwelling Catheter Indwelling Catheter Indwelling Catheter - Exam Physical examination: PHYSICAL EXAMINATION: Patient is resting comfortably in bed. VITAL SIGNS: Blood pressure is [177/106]. Heart rate is [108]. Respiration is [ 17]. Temperature is [99.9]. HEENT: Head is atraumatic, neck is supple, there were no carotid bruits. CHEST: Lungs are clear to auscultation and percussion. CARDIAC: S1, S2 normal rate and rhythm. There is no murmur. ABDOMEN: Soft and nontender. Bowel sounds are present. EXTREMITIES: There is no pedal edema. Peripheral pulses are present. Neurological examination: Patient's neurological examination is unchanged from yesterday. Patient remains intubated on the ventilator and lethargic. The patient does appear to be slightly improved in terms of his overall mental status. According to the ICU nursing staff however he has episodes of confusion and mild agitation. - Labs CBC & Chem 7: 06/25/18 04:30 06/25/18 04:30 Labs: Abnormal Lab Results - Last 24 Hours (Table) 06/24/18 06/24/18 06/24/18 Range/Units 21:17 22:06 22:06 WBC 13.9 H (3.8-10.6) k/uL RBC 4.14 L (4.30-5.90) m/uL Hgb 12.6 L (13.0-17.5) gm/dL Hct 38.5 L (39.0-53.0) % RDW 16.9 H (11.5-15.5) % Neutrophils # 10.7 H (1.3-7.7) k/uL Glucose 115 H (74-99) mg/dL POC Glucose (mg/dL) 108 H (75-99) mg/dL Total Bilirubin 1.6 H (0.2-1.3) mg/dL AST 161 H (17-59) U/L ALT 102 H (21-72) U/L Total Protein 5.8 L (6.3-8.2) g/dL Albumin 3.1 L (3.5-5.0) g/dL 06/24/18 06/25/18 06/25/18 Range/Units 23:47 04:30 04:30 WBC 14.0 H (3.8-10.6) k/uL RBC (4.30-5.90) m/uL Hgb (13.0-17.5) gm/dL Hct (39.0-53.0) % RDW 17.0 H (11.5-15.5) % Neutrophils # 11.0 H (1.3-7.7) k/uL Glucose 121 H (74-99) mg/dL POC Glucose (mg/dL) 110 H (75-99) mg/dL Total Bilirubin (0.2-1.3) mg/dL AST (17-59) U/L ALT (21-72) U/L Total Protein (6.3-8.2) g/dL Albumin (3.5-5.0) g/dL 06/25/18 06/25/18 Range/Units 06:36 11:58 WBC (3.8-10.6) k/uL RBC (4.30-5.90) m/uL Hgb (13.0-17.5) gm/dL Hct (39.0-53.0) % RDW (11.5-15.5) % Neutrophils # (1.3-7.7) k/uL Glucose (74-99) mg/dL POC Glucose (mg/dL) 121 H 117 H (75-99) mg/dL Total Bilirubin (0.2-1.3) mg/dL AST (17-59) U/L ALT (21-72) U/L Total Protein (6.3-8.2) g/dL Albumin (3.5-5.0) g/dL Microbiology - Last 24 Hours (Table) 06/19/18 13:23 Blood Culture - Final Blood No Growth after 144 hours Assessment and Plan (1) Hypoxic ischemic encephalopathy Current Visit: Yes Status: Acute Code(s): P91.60 - HYPOXIC ISCHEMIC ENCEPHALOPATHY [HIE], UNSPECIFIED SNOMED Code(s): 419658256 (2) Acute metabolic encephalopathy Current Visit: Yes Status: Acute Code(s): G93.41 - METABOLIC ENCEPHALOPATHY SNOMED Code(s): 12882914 (3) Acute renal failure Current Visit: Yes Status: Acute Code(s): N17.9 - ACUTE KIDNEY FAILURE, UNSPECIFIED SNOMED Code(s): 20655934 (4) Chronic alcoholism Current Visit: Yes Status: Acute Code(s): F10.20 - ALCOHOL DEPENDENCE, UNCOMPLICATED SNOMED Code(s): 0196077 (5) Rhabdomyolysis Current Visit: Yes Status: Acute Code(s): M62.82 - RHABDOMYOLYSIS SNOMED Code(s): 097777341 Plan: This patient is a 73-year-old male who was admitted to [facility] on 06/19/2018 for treatment of severe hypoxic/anoxic respiratory failure as he was found collapsed in his apartment. He was resuscitated and initially placed on the ventilator and admitted to the intensive care unit. He was making very slow progress as he was intubated prior to his arrival. The patient was extubated 2 days ago and did show slight improvement in his mental status. He was noted to have left-sided weakness yesterday and for this reason we have recommended a MRI of the brain to be done today for further evaluation. His MRI of the brain was completed today the results of which are noted above. The MRI does show multiple areas of hyperintensity on T2 FLAIR images. These are multiple and diffuse. Diffusion-weighted imaging did reveal areas of acute infarction involving the bilateral occipital lobes. Her vision has remained stable despite this finding. We did have a discussion with [facility] neurology Department with Dr. Bonds who accepted this patient and transferred to [facility] today. Once again we did discuss the MRI findings with the patient in detail. We have instructed ICU nursing staff to contact this patient's son who is living in the area. We will continue close neurological follow-up for the patient during this admission. As noted he has been cleared for transfer to [facility] neuro ICU unit for further management. This patient's overall prognosis at this time remains very guarded. He is neurologically stable for transfer by EMS to [facility] and there are ongoing workup for this patient. His overall prognosis once again remains very guarded.
[2018-06-26] MEDS ORDERED: amLODIPine 10 MG TAB PO SCH (09:00)
--- NOTE | 2018-06-28 15:11 | CDI ---
Last Revision, August 2017 Documentation Clarification Form Date: 06/28/18 From: Marce Burrell Phone: If you have a question regarding this query, please contact Zarina Santana at [phone] between 8am and 5pm. Admit Date: 06/19/2018 2:11:00 PM Patient Name: Jorge Leggett Visit Number: [id number] Discharge Date: 06/25/18 ATTENTION: The Clinical Documentation Specialists (CDI) and [facility] Coding Staff appreciate your assistance in clarifying documentation. Please respond to the clarification below the line at the bottom and electronically sign. The CDI & [facility] Coding staff will review the response and follow-up if needed. Please note: Queries are made part of the Legal Health Record. If you have any questions, please contact the author of this message via ITS. Dr. VELASQUEZ, Sepsis is documented in the ED note, H&P and in your 06.20 and 06/21 progress notes but not documented after that. History/Risk Factors: Patient was admitted for encephalopathy likely secondary to DTs vs seizure. The patient was also admitted for acute respiratory failure and aspiration pneumonia. Clinical Indicators: Altered mental status, leukocytosis. WBC/Left Shift: 12.9/9.7 Lactic acid: 3.0 Blood cultures: No growth Vitals signs on admission: T. 97.9, P. 87, R. 18, BP 181/159 Treatment: Antibiotics: IV zosyn IV Bolus: Sodium chloride 1,000 m.s @999 mls/hr In your professional opinion, please clarify if these findings signify one of the following conditions, whether the condition Sepsis ruled out Sepsis due to __aspiration pneumonia_ Severe Sepsis Septic Shock Other, please specify Unable to determine MTDD
--- NOTE | 2018-06-28 16:09 | P.DS ---
Providers Date of admission: 06/19/18 14:11 Expected date of discharge: 06/26/18 Attending physician: Lety Michaels MD Consults: 06/19/18 14:12 Consult Physician Urgent Consulting Provider: Floyd Mae Consult Reason/Comments: ams Do you want consulting provider notified?: Yes 06/19/18 14:42 Consult Physician Urgent Consulting Provider: Giles Willingham Consult Reason/Comments: Critical care Do you want consulting provider notified?: Already Contacted Primary care physician: Stated None - Discharge Diagnosis(es) (1) Left-sided weakness Status: Acute (2) Acute respiratory failure Status: Acute (3) Elevated troponin Status: Acute (4) Transaminitis Status: Acute (5) Hypertension Status: Acute (6) Acute metabolic encephalopathy Status: Acute (7) Chronic alcoholism Status: Acute Hospital Course: 73-year-old male with a past medical history of hypertension who presented via EMS after he was found minimally responsive in his apartment. The patient was last seen yesterday morning when he had arrived in town as he usually does every weekend via car. This morning, his friends had not heard from them so decided to go to his apartment where they found him on the ground and minimally responsive. Upon arrival of EMS to the scene, patient was found hypoxic on the floor and saturating in the 70s, which increased to high 80s with oxy-mask. An empty vodka bottle was discovered at the side of the patient. Upon arrival to the ED, the patient was withdrawing to noxious stimuli and non- verbal. He was noted to have rales bilaterally with coarse breath sounds with high suspicion for aspiration. The patient was subsequently intubated for airway protection. Patient initially had acute kidney injury with a creatinine of 3.1, rhabdomyolysis with a CPK of 20,000 and troponin of 0.05. CT of the brain was done and was negative for any acute findings. His acute respiratory failure was thought to be secondary to aspiration pneumonia. Chest x-ray and showed bibasilar atelectasis. Lactic acid was 2.1 on admission which trended down to 1.3 on June 20. He was given DuoNeb treatments every 4 hours. He was started and continued on Zosyn IV 3.376 g 3 times day. Sputum culture was collected and was negative. Blood cultures were preliminary negative at 120 hours. His acute encephalopathy was thought to be secondary to delirium tremens versus hypoxic encephalopathy from aspiration pneumonia. Initial urine drug screen was negative. His alcohol level was less than 10 at the time of admission. His B12 and RPR was negative as well. Initial CT brain on June 19 showed no acute intracranial abnormality, repeat CT brain on June 20 stable as well. Carotid ultrasound was done and showed no carotid stenosis. Echocardiogram was done and showed an EF of 55-60% with mild LVH. EEG was done to rule out seizures and showed widespread diffuse disturbances in the cerebral function without epileptiform abnormalities. Patient was placed on [facility] protocol for alcohol withdrawals. He also had a troponemia during his hospitalization. His troponin was 0.054, 0.091, 0.075 with EKG showing normal sinus rhythm. This was thought to be secondary to demand ischemia, ACS was ruled out. Patient also had a transaminitis with an AST of 497 and ALTs of 85 which down trended through his hospital stay. This is thought to be secondary to alcohol abuse versus hypoxic insult. His home medications were resumed for his hypertension. He was successfully extubated on 06/25/2018. Patient showed left-sided weakness after extubation. His mental status did improve slightly over 2 days after being extubated. Neurology recommended MRI of the brain. An MRI of the brain was done on 06/25/2018 after extubation which showed areas of restricted diffusion in the bilateral occipital lobes worrisome for acute infarct or ischemia. Decision was made by neurology to transfer the patient to [facility] neuro ICU unit for further management. Pertinent Studies: CT brain x 2 CT angiogram MRI brain Echocardiogram CXR Carotid ultrasound EEG Patient Condition at Discharge: Serious Plan - Discharge Summary Discharge Rx Participant: No New Discharge Prescriptions: No Action Tamsulosin HCl [Flomax] 0.4 mg PO DAILY Loratadine [Claritin] 10 mg PO DAILY Metoprolol Succinate (ER) [Toprol Xl] 100 mg PO DAILY cloNIDine HCL 0.3 mg PO TID Potassium Chloride [Klor-Con 20] 20 meq PO DAILY Allopurinol [Zyloprim] 300 mg PO DAILY Albuterol Inhaler [Ventolin Hfa Inhaler] 1 - 2 puff INHALATION Q6HR PRN #1 inhaler PRN Reason: Shortness Of Breath Or Wheezing Lisinopril [Zestril] 20 mg PO DAILY Furosemide [Lasix] 40 mg PO DAILY Discharge Medication List Allopurinol [Zyloprim] 300 mg PO DAILY 01/11/18 [History] Loratadine [Claritin] 10 mg PO DAILY 01/11/18 [History] Metoprolol Succinate (ER) [Toprol Xl] 100 mg PO DAILY 01/11/18 [History] Potassium Chloride [Klor-Con 20] 20 meq PO DAILY 01/11/18 [History] Tamsulosin HCl [Flomax] 0.4 mg PO DAILY 01/11/18 [History] cloNIDine HCL 0.3 mg PO TID 01/11/18 [History] Albuterol Inhaler [Ventolin Hfa Inhaler] 1 - 2 puff INHALATION Q6HR PRN #1 inhaler 01/15/18 [Rx] Lisinopril [Zestril] 20 mg PO DAILY 06/19/18 [History] Furosemide [Lasix] 40 mg PO DAILY 06/21/18 [History] Follow up Appointment(s)/Referral(s): None,Stated [Primary Care Provider] - 1-2 days Discharge Disposition: [facility] TO [facility]
== END 2018-06-25 23:40 | disposition short-term general hospital (02) | DRG 870 ==
LOC: EC 13:00 → 6SEL 14:11 → 6ICU 14:46
PROVIDERS: ADMIT Internal Medicine; ATTEND Internal Medicine
PROC: 06HM33Z Insertion of Infusion Device into Right Femoral Vein, Percutaneous Approach (ICD-10-PCS; 2018-06-19)
PROC: 5A1955Z Respiratory Ventilation, Greater than 96 Consecutive Hours (ICD-10-PCS; principal; 2018-06-20)
PROC: 0BH17EZ Insertion of Endotracheal Airway into Trachea, Via Natural or Artificial Opening (ICD-10-PCS; 2018-06-20)
DX: A41.9 Sepsis, unspecified organism (principal); J69.0 Pneumonitis due to inhalation of food and vomit; J96.01 Acute respiratory failure with hypoxia; G93.41 Metabolic encephalopathy; N17.0 Acute kidney failure with tubular necrosis; I63.9 Cerebral infarction, unspecified; G93.49 Other encephalopathy; E87.4 Mixed disorder of acid-base balance; F10.231 Alcohol dependence with withdrawal delirium; G40.509 Epileptic seizures related to external causes, not intractable, without status epilepticus; G93.1 Anoxic brain damage, not elsewhere classified; J98.11 Atelectasis; M62.82 Rhabdomyolysis; G81.94 Hemiplegia, unspecified affecting left nondominant side; D64.9 Anemia, unspecified; D69.6 Thrombocytopenia, unspecified; R29.719 NIHSS score 19; I12.9 Hypertensive chronic kidney disease with stage 1 through stage 4 chronic kidney disease, or unspecified chronic kidney disease; R29.810 Facial weakness; J32.0 Chronic maxillary sinusitis; N20.0 Calculus of kidney; N40.0 Benign prostatic hyperplasia without lower urinary tract symptoms; M10.9 Gout, unspecified; I95.9 Hypotension, unspecified; R77.9 Abnormality of plasma protein, unspecified; R74.0 Nonspecific elevation of levels of transaminase and lactic acid dehydrogenase [LDH]; R45.1 Restlessness and agitation; Z79.899 Other long term (current) drug therapy; Z87.442 Personal history of urinary calculi; Z85.828 Personal history of other malignant neoplasm of skin; Z91.013 Allergy to seafood; Z90.49 Acquired absence of other specified parts of digestive tract; Z83.3 Family history of diabetes mellitus; Z82.49 Family history of ischemic heart disease and other diseases of the circulatory system; Y90.0 Blood alcohol level of less than 20 mg/100 ml
CPT/HCPCS: 31500; 36415; 36600; 51702; 70450; 70496; 70498; 70551; 71045; 76770; 80048; 80053; 80061; 80074; 80306; 80320; 81001; 82550; 82553; 82607; 82805; 83036; 83605; 83735; 84100; 84132; 84146; 84484; 85025; 85379; 85610; 85730; 86780; 87040; 87070; 87205; 93005; 93306; 93880; 94002; 94003; 94640; 95819; 96361; 96365; 96366; 96372; 96375; 99291